=== PATIENT | male | born 1975 | race Caucasian/White ===

== ENCOUNTER 2022-01-17 07:36 | Day surgery (SDC) | payer BC, SELFPAY ==
--- NOTE | 2022-01-17 | COLBX_PTH ---
PATIENT: MYNOR SHELL Jr. LOC: EN U#:[id number] AGE/SX: 46/M ROOM: RE01/17/[address]: Dr. Irasema Martínez MD : 1975 BED: DIS: 01/17/2022 SPEC #: [id number] RECD: 01/17/22 11:28 STATUS: JAVIER REKika #: [id number] DEUCE: 01/17/22 00:[address]: Irasema Martínez DEPT: SURGICAL PATHOLOGY RECD BY: Patrick Poep ENTERED: 01/17/22 11:28 SP TYPE: COLON BX OT DR: Dr. Loki Reid MD Tissues: A - Sigmoid colon biopsy B - Rectum, NOS Procedures: Surgery Specimen Level IV HEADER OPERATION: Colonoscopy ? open access (MAC) PRE-OP DIAGNOSIS: Screening TISSUE SUBMITTED: A ? Sigmoid colon polyp, B ? Rectal polyp MICROSCOPIC DIAGNOSIS A. Sigmoid colon polyp, biopsy: Tubular adenoma. Fragments of hyperplastic polyp. B. Rectal polyp, biopsy: Consistent with inflammatory polyp. ELEAZAR:catracho 01/18/2022 MICROSCOPIC DESCRIPTION Slides are reviewed. GROSS DESCRIPTION A - Received in fixative is one container labeled with the patient's name and designated sigmoid colon polyp. The specimen consists of multiple irregular fragments of light allen soft tissue that in aggregate measure 0.6 x 0.3 x 0.1 cm. The specimen is totally submitted in one cassette. B - Received in fixative is one container labeled with the patient's name and designated rectal polyp. The specimen consists of two irregular fragments of light allen soft tissue that in aggregate measure 0.6 x 0.3 x 0.1 cm. The specimen is totally submitted in one cassette. / ELEAZAR:catracho 01/17/2022 TC:1 [facility]: [id number] x2
--- NOTE | 2022-01-17 08:05 | HP.PCM_ITS ---
HPI - General HPI Narrative MYNOR SHELL, is a 46 M who presents for screening colonoscopy. Patient never had a previous colonoscopy. Patient denies any family history of colon cancer. Patient denies any current abdominal pain/nausea/vomiting/reflux. Patient's bowel moods daily denies any blood. PFSH Medical History Non-smoker Home Medications NK 12/23/21 [History Last Taken Unknown] Allergy/AdvReac Type Severity Reaction Status Date / Time No Known Allergies Allergy Unverified 01/14/22 11:18 Family History Father Prostate CA Hypertension Surgical History (Updated 01/14/22 @ 11:22 by Soo Agarwal) History of root canal procedure Hx of hand surgery Social History household members: spouse and children number of children: 3 current occupational status: employed current occupation: [employer] pets and animals: Yes Smoking Status: Never smoker substance use type: does not use seatbelt use: always do you feel safe at home: Yes Past Medical/Surgical History Planned Operation Planned Operative Procedure/s: CSCOPE OA Previous Hospitalizations/Surgeries HX Hospitalizations: No Any Problems With Anesthesia: No You/Your Family Experience Fever (Hyperthermia) With Anes: No Cholinesterase deficiency: No Cardiovascular Hx Hypertension: No Respiratory Hx Sleep Apnea: No Hx Respiratory Tract Infection/Cold (presently): No Do You Snore Loudly (louder than talking or can be heard): No Do You Often Feel Tired/ Fatigued/ Sleepy Dring Daytime?: No Has Anyone Observed You Stop Breathing During Sleep?: No Result (for STOP score): Negative Smoking Status: Never smoker Neurological Does patient have nerve stimulator: No Reproduction : No Allergies No Known Allergies Allergy (Unverified 01/14/22 11:18) Discharge Is Pt Admitted From a [facility], or a [facility]: No After D/C, Where Do you Plan to Go: Return Home Physical Exam Const alert, oriented x3 and no apparent distress HEENT normocephalic and head/scalp atraumatic Resp normal respiratory effort Cardio regular rate GI soft to palpation and non-tender; Negative for non-distended Palpation: Negative for guarding Extremity no clubbing, cyanosis or edema Neuro CN's II-XII intact bilaterally Psych mental status grossly normal Assessment & Plan Assessment/Plan (1) Encounter for screening for malignant neoplasm of colon: Procedure Criteria Type of Procedure Procedure Type: Elective Elective Risks - COVID COVID Risk Discussion: The surgeon/proceduralist and patient have discussed in detail the risk of exposure to and/or potential harm posed by the COVID-19 virus with having a surgery/procedure at this time versus the risk of delaying the surgery/procedure. It is not possible to know either the risk of delaying the surgery or procedure or chance of getting an infection with perfect accuracy, but a joint decision was made between the patient and the surgeon/proceduralist to proceed at this time with the scheduled surgery/procedure as indicated on the consent form. Surgery Risks - Colonoscopy Risks Include but are not Limited To: Risks include but are not limited to: Bleeding, perforation requiring further surgery, inability to complete colonoscopy requiring barium enema.
[2022-01-17 08:16] VITALS: BP 152/94; PULSE 68; RESP 16; TEMP 37; O2SAT 100; BMI 36.7
[2022-01-17] MEDS: Lactated Ringers 1,000 ML 15 ML IV (08:23)
[2022-01-17 09:31] VITALS: BP 116/68; BP 152/94; PULSE 62; RESP 16; TEMP 36.3; O2SAT 97
--- NOTE | 2022-01-17 09:33 | OP.COLON_ITS ---
Patient Name: Herman Ruiz Procedure Date: 01/17/2022 9:01 AM Date of : 1975 Age: 46 Procedure: Colonoscopy Indications: Screening for colorectal malignant neoplasm Providers: Irasema Martínez MD Referring MD: Irasema Martínez MD Medicines: Monitored Anesthesia Care Patient Profile: This is a 46 year old male. Last Colonoscopy: none. The patient's first colonoscopy is today. Complications: No immediate complications. Procedure: Pre-Anesthesia Assessment: - Prior to the procedure, a History and Physical was performed, and patient medications and allergies were reviewed. The patient's tolerance of previous anesthesia was also reviewed. The risks and benefits of the procedure and the sedation options and risks were discussed with the patient. All questions were answered, and informed consent was obtained. Prior Anticoagulants: The patient has taken no previous anticoagulant or antiplatelet agents. ASA Grade Assessment: Per anesthesia. After reviewing the risks and benefits, the patient was deemed in satisfactory condition to undergo the procedure. After I obtained informed consent, the scope was passed under direct vision. Throughout the procedure, the patient's blood pressure, pulse, and oxygen saturations were monitored continuously. The Colonoscope was introduced through the anus and advanced to the cecum, identified by the appendiceal orifice, ileocecal valve and palpation. The colonoscopy was performed without difficulty. The patient tolerated the procedure well. The quality of the bowel preparation was good. Scope In: 9:09:56 AM Scope Withdrawal Time 0 hours 13 minutes 39 seconds Scope Out: 9:27:57 AM Total Procedure Duration Time 0 hours 18 minutes 1 second Findings: The perianal and digital rectal examinations were normal. Three semi-pedunculated polyps were found in the rectum and sigmoid colon. The polyps were less than 5 mm in size. These polyps were removed with a cold biopsy forceps. Resection and retrieval were complete. The exam was otherwise without abnormality on direct and retroflexion views. Impression: - Three less than 5 mm polyps in the rectum and in the sigmoid colon, removed with a cold biopsy forceps. Resected and retrieved. - The examination was otherwise normal on direct and retroflexion views. Recommendation: - Discharge patient to home. - Resume previous diet. - Continue present medications. - Await pathology results. - Repeat colonoscopy in 5 years for surveillance based on pathology results. Procedure Code(s): --- Professional --- 86314, PT, Colonoscopy, flexible; with biopsy, single or multiple Diagnosis Code(s): --- Professional --- Z12.11, Encounter for screening for malignant neoplasm of colon K62.1, Rectal polyp D12.5, Benign neoplasm of sigmoid colon CPT copyright 2017 [employer]. All rights reserved. The codes documented in this report are preliminary and upon berry planter review may be revised to meet current compliance requirements. MD Irasema Swift MD 01/17/2022 9:33:04 AM This report has been signed electronically. Number of Addenda: 0 Note Initiated On: 01/17/2022 9:01 AM
--- NOTE | 2022-01-17 09:34 | OP.CCLET_ITS ---
01/17/2022 Everett Reid [address] [place] [address] Re : Colonoscopy procedure for Herman Ruiz Dear Dr. Reid This procedure was performed on Monday, January 17, 2022. My impressions and recommendations are as follows: Impressions : - Three less than 5 mm polyps in the rectum and in the sigmoid colon, removed with a cold biopsy forceps. Resected and retrieved. - The examination was otherwise normal on direct and retroflexion views. Recommendations : - Discharge patient to home. - Resume previous diet. - Continue present medications. - Await pathology results. - Repeat colonoscopy in 5 years for surveillance based on pathology results. My findings are described in the full procedure note, which is enclosed. If I can be of further assistance, please feel free to contact me at Doctor phone number(s): , Work: . Sincerely, MD Irasema Swift MD 01/17/2022 9:33:04 AM This report has been signed electronically.
[2022-01-17 09:35] VITALS: BP 124/73; BP 152/94; PULSE 62; RESP 16; O2SAT 99
[2022-01-17 09:40] VITALS: BP 126/87; BP 152/94; PULSE 61; RESP 16; O2SAT 99
[2022-01-17 09:45] VITALS: BP 126/83; BP 152/94; PULSE 55; RESP 16; TEMP 36.3; O2SAT 100
[2022-01-17 10:00] VITALS: BP 152/94
== END 2022-01-17 10:05 | disposition home or self-care (01) ==
LOC: EN 07:39 → AC 07:41
PROVIDERS: PCP Family Medicine; Referring Provider Surgery; Visit Provider Surgery
PROC: 0DJD8ZZ Inspection of Lower Intestinal Tract, Via Natural or Artificial Opening Endoscopic (ICD-10-PCS; CPT 45378; principal; 2022-01-17 08:55)
DX: Z12.11 Encounter for screening for malignant neoplasm of colon (principal); K62.1 Rectal polyp; D12.5 Benign neoplasm of sigmoid colon
CPT/HCPCS: 45380; 88305; J7120; J2405

== ENCOUNTER → 2025-02-13 | Outpatient (CLI) | payer OTHER, SELFPAY ==
--- NOTE | 2025-02-13 13:58 | STRESSREP_ITS ---
Stress Test Report Date: 02/13/2025 Procedure: Exercise tolerance test Indications: Chest pain Consent: Per the patient Procedure: The patient exercised on a Raul protocol for 9 minutes and 30 seconds achieving a peak heart rate of 146 bpm (85% predicted maximal heart rate) with a peak blood pressure 184/82 mmHg and a peak MET capacity of approximately 11.7 MET's. The baseline ECG demonstrated sinus rhythm with inferior T wave inversion suggestive of ischemia. The peak exercise ECG showed no diagnostic ischemic changes, specificity reduced secondary to baseline abnormalities. There were no cardiac dysrhythmias pretest, during exercise, or recovery. The functional capacity was considered excellent. The patient complained of chest discomfort along with jaw pain starting during the third stage of the Raul protocol. This was resolved 4 minutes into recovery The examination was discontinued secondary to target heart rate being achieved and chest discomfort. Impression: 1. Technically adequate (percent predicted maximal heart rate greater than 85%) exercise tolerance test 2. Peak exercise ECG with no diagnostic ischemic changes. Patient with chest and jaw pain with exercise, resolving into recovery. Positive exercise stress for angina. 3. There were no cardiac dysrhythmias during exercise or recovery This note was generated with [employer] software. It may contain incorrect words, spelling, and punctuation that were not noted in checking the note before signing.
== END | disposition home or self-care (01) ==
LOC: CVS 11:59
PROVIDERS: PCP Family Medicine; Referring Provider Family Medicine; Visit Provider Family Medicine
DX: R07.9 Chest pain, unspecified (principal)
CPT/HCPCS: 93017

== ENCOUNTER → 2025-03-19 | Outpatient (CLI) | payer OTHER, SELFPAY ==
--- NOTE | 2025-03-19 14:25 | RAD_ITS ---
PROCEDURE: CHEST PA AND LATERAL 03/19/2025 REASON FOR EXAM: CAD TECHNIQUE: CHEST PA AND LATERAL COMPARISON: None FINDINGS: No focal consolidation. No pleural effusion or pneumothorax. Cardiac silhouette is within normal limits. No acute fractures. RAD/Chest PA and Lateral IMPRESSION: No focal consolidation. Reading Location: [id number]
--- NOTE | 2025-03-19 14:25 | RAD_ITS ---
PROCEDURE: CHEST PA AND LATERAL 03/19/2025 REASON FOR EXAM: CAD TECHNIQUE: CHEST PA AND LATERAL COMPARISON: None FINDINGS: No focal consolidation. No pleural effusion or pneumothorax. Cardiac silhouette is within normal limits. No acute fractures. RAD/Chest PA and Lateral IMPRESSION: No focal consolidation. Reading Location: [id number]
[2025-03-19 15:55] LABS: Hematocrit 45.5 % (40-54); Hemoglobin 15.1 g/dL (13.0-16.5); Immature Granulocytes Count 0.020 X10^3/uL (0.0-0.0); Mean Corp Hgb Conc 33.2 g/dL (32-36); Mean Corpuscular Volume 88.0 fL (80-94); Mean Platelet Vol. 9.7 fl (6.2-12.0); NRBC Flagged by Analyzer 0 % (0-5); Platelet Count 467 K/mm3 (150-450); RBC Distribution Width CV 13.9 % (11.6-14.6); RBC Distribution Width SD 44.6 fl (35.1-43.9); Red Blood Count 5.17 M/mm3 (4.6-6.2); White Blood Count 8.0 K/mm3 (4.4-11.0)
[2025-03-19 16:46] LABS: Anion Gap 13 (5-15); BUN 17 mg/dL (4-19); BUN/Creat Ratio 16.1 RATIO (10-20); Calcium,Total 9.1 mg/dL (7.6-11.0); Carbon Dioxide 21.6 mmol/L (21.0-32.0); Chloride 102 mmol/L (98-108); Glucose 94 mg/dL (70-99); Potassium 3.6 mmol/L (3.3-5.1)
== END | disposition home or self-care (01) ==
LOC: LAB 14:09
PROVIDERS: PCP Family Medicine; Referring Provider Internal Medicine Cardiovascular Disease; Visit Provider Internal Medicine Cardiovascular Disease
DX: R94.39 Abnormal result of other cardiovascular function study (principal)
CPT/HCPCS: 36415; 71046; 80048; 85025

== ENCOUNTER 2025-03-21 12:56 | Observation (INO) | payer OTHER, SELFPAY ==
[2025-03-20 07:38] VITALS: BMI 35.9
[2025-03-21] VITALS (16 sets, daily range): BP systolic 114–138; BP diastolic 59–79; PULSE 53–70; RESP 16–18; TEMP 36.6; O2SAT 95–99; BMI 35.9
--- OUTSIDE RECORDS SUMMARY | 2025-03-21 06:30 | XMS RPT_ITS | CCD ---
Author Organization [facility] Care Team Providers Care Smudger Name Role Phone Dr. Everett Reid Primary Care Provider Radha Cruz Attending Provider Unavailable Dr. Irasema Martínez Attending Provider Dr. Irasema Martínez Referring Provider Dr. Irasema Martínez Other Provider Jeanette SALDIVAR, Dr. Manjarrez Primary Care Provider Jeanette SALDIVAR, Dr. Manjarrez Attending Provider Jeanette SALDIVAR, Dr. Manjarrez Referring Provider [phone] Jeanette SALDIVAR, Dr. Manjarrez Other Provider Berhane SALDIVAR, Dr. Alberto Attending Provider Loki Reid Primary Care Unavailable Aminta Mariee Attending Unavailable Loki Reid Primary Care Unavailable Loki Reid Consulting Unavailable Loki Reid Referring Unavailable Remy Last Attending Unavailable Loki Reid Primary Care Unavailable Loki Reid Attending Unavailable Loki Reid Referring Unavailable Aminta Mariee Attending Provider Unavailable Gabe SALDIVAR, Dr. Whitley Attending Provider Medications Current Medications Medication Drug Class(es) Dates Sig (Normalized) Sig (Original) aspirin 81 mg delayed release oral tablet (2 sources) Platelet Aggregation Inhibitor, Nonsteroidal Anti-inflammatory Drug Start: 02-20-2025 End: 03-19-2025 Aspirin (Adult Low Dose Aspirin) 81 mg tablet,delayed release (DR/EC) Active 81 mg PO daily 90 3 March 19, 2025 12:00am atorvastatin 40 mg oral tablet (1 source) HMG-CoA Reductase Inhibitor Start: 03-19-2025 take 1 tablet by mouth once daily Atorvastatin (Lipitor) 40 mg tablet Active 40 mg PO daily 90 3 March 19, 2025 12:00am 24 hr metoprolol succinate 25 mg extended release oral tablet (1 source) beta-Adrenergic Haylee Start: 03-19-2025 take 1 tablet by mouth once daily Metoprolol Succinate (Toprol Xl) 25 mg tablet extended release 24 hr Active 25 mg PO daily 90 2 March 19, 2025 12:00am Problems Problem Classification Problem Date Documented Date Episodic/Chronic Esophageal disorders (1 source) Gastroesophageal reflux disease; Translations: [Gastro-esophageal reflux disease without esophagitis] 02-20-2025 Chronic Nonspecific chest pain (3 sources) Chest pain, unspecified; Translations: [Chest pain] Onset: 02-24-2025 02-20-2025 Episodic Other screening for suspected conditions (not mental disorders or infectious disease) (6 sources) Patient encounter status; Translations: [Encounter for screening for malignant neoplasm of colon] Episodic Results Test Name Value Interpretation Reference Range Facil ity Cardiovascular stress test r eportOrdered By: Remy Last on 02-13-2025 Study report [facility] [address] [place] [address] MR#: [id number] Acct: [id number] Name: MYNOR SHELL Rep #: [id number] : 1975 50 From: Remy Last MD Primary Care: Dr. Loki Reid MD Status: REG I Referring Dr: Loki Reid MD Sex: M C Stress Test Report Date: 02/13/2025 Procedure: Exercise tolerance test Indications: Chest pain Consent: Per the patient Procedure: The patient exercised on a Raul protocol for 9 minutes and 30 seconds achievinga peak heart rate of 146 bpm (85% predicted maximal heart rate) with a peak blood pressure 184/82 mmHg and a peak MET capacity of approximately 11.7 MET's. The baseline ECG demonstrated sinus rhythm with inferior T wave inversion suggestive of ischemia. The peak exercise ECG showed no diagnostic ischemic changes, specificity reduced secondary to baseline abnormalities. There were no cardiac dysrhythmias pretest, during exercise, or recovery. The functional capacity was considered excellent. The patient complained of chest discomfort along with jaw pain starting during the third stage of the Raul protocol. This was resolved 4 minutes into recovery The examination was discontinued secondary to target heart rate being achieved and chest discomfort. Impression: 1. Technically adequate (percent predicted maximal heart rate greater than 85%)exercise tolerance test 2. Peak exercise ECG with no diagnostic ischemic changes. Patient with chest and jaw pain with exercise, resolving into recovery. Positive exercise stress for angina. 3. There were no cardiac dysrhythmias during exercise or recovery This note was generated with [employer] software. It may contain incorrectwords, spelling, and punctuation that were not noted in checking the note beforesigning. 02/13/25 1406 Date _ Remy Last MD CC: Dr. Loki Reid MD ~ Date Dictated: 02/13/25 1358 Date Transcribed: 02/13/251357 Drop Man: PRIYANKA Malhotra [facility] Work Phone: Stress Reporton 02-13-2025 Stress Report [facility] [address] [place] [address] MR#: [id number] Acct: [id number] Name: SUMAYAMYNOR Jr. Rep #: [id number] : 1975 50 From: Remy Last MD Primary Care: Dr. Loki Reid MD Status: REG CLI Referring Dr: Loki Reid MD Sex: M C Stress Test Report Date: 02/13/2025 Procedure: Exercise tolerance test Indications: Chest pain Consent: Per the patient Procedure: The patient exercised on a Raul protocol for 9 minutes and 30 seconds achieving a peak heart rate of 146 bpm (85% predicted maximal heart rate) with a peak blood pressure 184/82 mmHg and a peak MET capacity of approximately 11.7 MET's. The baseline ECG demonstrated sinus rhythm with inferior T wave inversion suggestive of ischemia. The peak exercise ECG showed no diagnostic ischemic changes, specificity reduced secondary to baseline abnormalities. There were no cardiac dysrhythmias pretest, during exercise, or recovery. The functional capacity was considered excellent. The patient complained of chest discomfort along with jaw pain starting during the third stage of the Raul protocol. This was resolved 4 minutes into recovery The examination was discontinued secondary to target heart rate being achieved and chest discomfort. Impression: 1. Technically adequate (percent predicted maximal heart rate greater than 85%) exercise tolerance test 2. Peak exercise ECG with no diagnostic ischemic changes. Patient with chest and jaw pain with exercise, resolving into recovery. Positive exercise stress for angina. 3. There were no cardiac dysrhythmias during exercise or recovery This note was generated with [employer] software. It may contain incorrect words, spelling, and punctuation that were not noted in checking the note before signing. 02/13/25 1406 Date Remy Last MD CC: Dr. Loki Reid MD Date Dictated: 02/13/25 1358 Date Transcribed: 02/13/251357 Drop Man: PRIYANKA Signed Normal [facility] Vital Signs Date Time Vital Sign Value Performing Clinician Faci lity 03-19-2025 12:55-0400 Body height 172.[address] Loki Reid MD Work Phone: [facility] 03-19-2025 12:55-0400 Body mass index (BMI) [Ratio] 35.9 kg/m2 Dr. Loki Reid MD Work Phone: [facility] 03-19-2025 12:55-0400 Body weight 107.[address] Loki Reid MD Work Phone: [facility] 03-19-2025 12:55-0400 Diastolic blood pressure 86 mm[Hg] Dr. Loki Reid MD Work Phone: [facility] 03-19-2025 12:55-0400 Heart rate 70 /min Dr. Loki Reid MD Work Phone: [facility] 03-19-2025 12:55-0400 Respiratory rate 16 /min Dr. Loki Reid MD Work Phone: [facility] 03-19-2025 12:55-0400 Systolic blood pressure 142 mm[Hg] Dr. Loki Reid MD Work Phone: [facility] 01-17-2022 09:45-0400 Body temperature 97.3 [degF] Dr. Everett Reid Work Phone: [facility] Work Phone: 01-17-2022 09:45-0400 Diastolic blood pressure 83 mm[Hg] Dr. Everett Reid Work Phone: [facility] Work Phone: 01-17-2022 09:45-0400 Heart rate 55 /min Dr. Everett Reid Work Phone: [facility] Work Phone: 01-17-2022 09:45-0400 Respiratory rate 16 /min Dr. Everett Reid Work Phone: [facility] Work Phone: 01-17-2022 09:45-0400 SaO2% (BldA) [Mass fraction] 100 % Dr. Everett Reid Work Phone: [facility] Work Phone: 01-17-2022 09:45-0400 Systolic blood pressure 126 mm[Hg] Dr. Everett Reid Work Phone: [facility] Work Phone: 01-17-2022 08:16-0400 Body height 172.[address] Everett Reid Work Phone: [facility] Work Phone: 01-17-2022 08:16-0400 Body mass index (BMI) [Ratio] 36.7 kg/m2 Dr. Everett Reid Work Phone: [facility] Work Phone: 01-17-2022 08:16-0400 Body weight 109.[address] Everett Reid Work Phone: [facility] Work Phone: 12-23-2021 09:14-0400 Body mass index (BMI) [Ratio] 35.7 kg/m2 Dr. Everett Reid Work Phone: [facility] Work Phone: 12-23-2021 09:14-0400 Body weight 106.[address] Everett Reid Work Phone: [facility] Work Phone: Encounters Encounter Date Encounter Type Care Provider Facility Start: 03-19-2025 End: 03-19-[address] Loki Reid MD Work Phone: -[facility] Start: 03-19-2025 End: 03-19-[address] Gutierrez Bernal MD -[facility] Work Phone: Start: 02-20-2025 Non-patient / Non-visit Aminta Mariee -[facility] Work Phone: Start: 02-20-2025 ambulatory Loki Reid Faci lity:[facility] Start: 02-13-2025 ambulatory Loki Reid Facpetra lity:[facility] Start: 02-13-2025 Non-patient / Non-visit Dr. Remy Last MD -[facility] Start: 02-13-2025 End: 02-13-[address] Loki Reid MD Work Phone: [facility] Work Phone: Start: 02-13-2025 End: 02-13-[address] Loki Reid MD -Cardiovascular Services Work Phone: Start: 02-13-2025 End: 02-13-2025 ambulatory Loki Reid Facility:[facility] Start: 01-17-2022 Non-patient / Non-visit Dr. Everett Reid Work Phone: [facility] Start: 01-17-2022 End: 01-17-2022 Admission to same day surgery center Dr. Everett Reid Work Phone: [facility]-Endoscopy Start: 12-23-2021 Non-patient / Non-visit Dr. Everett Reid Work Phone: [facility] Procedures Date Procedure Procedure Detail Performing Clinician Start: 01-17-[address] Fadi Reid Work Phone: Plan of Treatment Date Care Activity Detail Author Start: 03-19-2025 Evaluation of diagno stic study results [facility] Basic metabolic 2008 panel with ionized calcium - Serum or Plasma [facility] spital Catheterization of left heart [facility] CBC W Auto Different ial panel - Blood [facility] Patient referral [facility] Work Phone: XR Chest PA and Lateral [facility] Payers Date Payer Category Payer Private Health Insurance [id number] 2025 Self-pay [id number] Unknown [id number] Unknown [id number] Unknown [id number] Unknown [id number] Social History Date Type Detail Facility Start: 01-17-2022 Tobacco smoking stat us NHIS Unknown if ever smoked [facility] Work Phone: Start: 1975 Sex Assigned At Male [facility] Start: 01-17-2022 End: 02-20-2025 Tobacco smoking status NHIS Never smoked tobacco (finding) [facility] Mental Status Date Assessment Result Facility 01-17-2022 Cognitive function Voice/Name [facility] Work Phone: Evaluation note Note Date & Type Note Facility Evaluation note Diagnosis Onset Date Encounter for screening for malignant neoplasm of colon acute [facility] Work Phone: Evaluation note Note Date & Type Note Facility Evaluation note No assessment information availa ble [facility] Work Phone: Evaluation note Note Date & Type Note Facility Evaluation note Diagnosis Onset Date Resolution Abnormal stress test acute March 19, 2025 12:53pm [facility] Work Phone: Reason for referral (narrative) Note Date & Type Note Facility Reason for referral (narrative) No reason for referral information available [facility] Work Phone: Chief Complaint and Reason for Visit Chief Complaint Amb Documentation Reason for Visit Encounter for screen ing for malignant neoplasm of colon Chief Complaint Admit Date CHEST PAIN February 13, 2025 11:5 7am CHEST PAIN February 13, 2025 1:58 pm Chief Complaint Admit Date CHEST PAIN February 13, 2025 11:5 7am CHEST PAIN February 13, 2025 1:58 pm Amb Documentation February 20, 2025 1:09 pm CP/ABN STRESS (Jeanette) March 19, 2025 1 2:53pm Reason for Visit Admit Date Abnormal stress test March 19, 2025 12: 53pm Family History Relationship Condition Age at Onset Recorded Date/T paulina father Malignant neoplasm of prostate Unknown Hypertension Unknown Advance Directives Advance Directive Response Recorded Date/ Time Living Will No January 14, 2022 1 1:18am Power of Conditioning Room Worker No January 14, 2022 11:18am Summary Purpose Additional Source Comments Goals (unrecognized section and content) Goals may be documented in a n alternate sectionGoals may be documented in an alternate sectionGoals may be documented in an alternate section Care Teams (unrecognized sec tion and content) Team Status: Active Member Role Status Dates Dr. Loki Reid MD Primary Care Provider Acti ve Team Status: Inactive Member Role Status Dates Dr. Loki Reid MD Primary Care Provider Acti ve Start: February 13, 2025 End: February 13, 2025 Dr. Loki Reid MD Attending Provider Active Start: February 13, 2025 End: February 13, 2025 Dr. Loki Reid MD Referring Provider Active Start: February 13, 2025 End: February 13, 2025 Team Status: Active Member Role Status Dates Dr. oLki Reid MD Primary Care Provider Acti ve Start: February 13, 2025 Dr. Loki Reid MD Referring Provider Active Start: February 13, 2025 Dr. Loki Reid MD Other Provider Active Start: February 13, 2025 Dr. Remy Last MD Attending Provider Active Start: February 13, 2025 Team Status: Active Member Role/Relationship Status Dates Dr. Loki Reid MD Primary Care Provider Acti ve Team Status: Inactive Member Role/Relationship Status Dates Dr. Loki Reid MD Primary Care Provider Acti ve Start: February 13, 2025 End: February 13, 2025 Dr. Loki Reid MD Attending Provider Active Start: February 13, 2025 End: February 13, 2025 Dr. Loki Reid MD Referring Provider Active Start: February 13, 2025 End: February 13, 2025 Team Status: Active Member Role/Relationship Status Dates Dr. Loki Reid MD Primary Care Provider Acti ve Start: February 13, 2025 Dr. Loki Reid MD Referring Provider Active Start: February 13, 2025 Dr. Loki Reid MD Other Provider Active Start: February 13, 2025 Dr. Remy Last MD Attending Provider Active Start: February 13, 2025 Team Status: Active Member Role/Relationship Status Dates Dr. Loki Reid MD Primary Care Provider Acti ve Start: February 20, 2025 Aminta Mariee Attending Provider Active Start: 2024 Team Status: Inactive Member Role/Relationship Status Dates Dr. Loki Reid MD Primary Care Provider Acti ve Start: March 19, 2025 End: March 19, 2025 Dr. Loki Reid MD Referring Provider Active Start: March 19, 2025 End: March 19, 2025 Dr. Gutierrez Bernal MD Attending Provider Active S tart: March 19, 2025 End: March 19, 2025 (unrecognized sect ion and content) No Status Records Found INFORMATION SOURCE (unrecogn ized section and content) DATE CREATED AUTHOR 02/25/2025 [facility] FOR RECORDS PERTAINING TO PATIENTS WHO ARE OR HAVE BEEN ENROLLED IN A CHEMICAL DEPENDENCY/SUBSTANCEABUSE PROGRAM, SOME INFORMATION MAY BE OMITTED. This clinical summary was aggregated from multiple sources. Caution should be exercised in using it in the provision of clinical care. This summary normalizes information from multiple sources, and as a consequence, information in this document may materially change the coding, format and clinical context of patient data. In addition, data may be omitted in some cases. CLINICAL DECISIONS SHOULD BE BASED ON THE PRIMARY CLINICAL RECORDS. [facility]. provides no warranty or guarantee of the accuracy or completeness of information in this document.
--- NOTE | 2025-03-21 13:00 | EKG12_ITS ---
Test Reason : POSTPCI Blood Pressure : */* mmHG Vent. Rate : 55 BPM Atrial Rate : 55 BPM P-R Int : 168 ms QRS Dur : 92 ms QT Int : 446 ms P-R-T Axes : 26 46 -42 degrees QTcB Int : 426 ms Sinus bradycardia Inferior infarct (cited on or before 19-Mar-2025) Abnormal ECG When compared with ECG of 19-Mar-2025 13:06, No significant change was found Confirmed by Osmani Ortega ([id number]), editor greeting card KERI CHEN ([id number]) on 03/25/2025 5:43:26 AM Referred By: Gutierrez Bernal Confirmed By: Osmani Ortega
--- NOTE | 2025-03-21 13:00 | DCINST_ITS ---
Discharge Instructions DC O2, CPAP, BIPAP needs Home O2 Discharge instructions: No Dressing / Incision Discharge Activity: Return to Normal Activity Dressing / Incision Call your doctor if your incision/area has: Continuous Slow Oozing, Sudden Increased Bleeding, Increased Pain/ Swelling, Increased Redness and Foul Smelling Discharge Call your doctor if you observe: Fever of 101 or Higher, Coldness, Increased Pain, Numbness or Tingling and Change in Color Follow Up Care Please Follow Up With: Gutierrez Bernal MD When: 1-2 weeks Test Results: Test results from this visit will be discussed in further detail at your follow- up appointment, if applicable. Discharge Plan Admission Attending Provider: Gutierrez Bernal Primary Care Provider: Loki Reid Instructions Print Language: Upper Sorbian Discharge Orders/Prescriptions Prescriptions: New amlodipine 2.5 mg Tablet 2.5 mg PO DAILY Qty: 30 6RF clopidogrel 75 mg Tablet 75 mg PO DAILY Qty: 30 11RF nitroglycerin [Nitrostat] 0.4 mg tablet, sublingual 0.4 mg sublingual Q5M PRN (Reason: chest pain) Qty: 14 3RF Rx Instructions: do not exceed 3 doses per episode Continued metoprolol succinate [Toprol XL] 25 mg tablet extended release 24 hr 25 mg PO QDAY Qty: 90 2RF atorvastatin [Lipitor] 40 mg tablet 40 mg PO QDAY Qty: 90 3RF aspirin [Adult Low Dose Aspirin] 81 mg tablet,delayed release (DR/EC) 81 mg PO QDAY Qty: 90 3RF Referrals / Follow Up: Loki Reid MD [Primary Care Provider] - Disposition Disposition (needs filled in before D/C Order can be placed): Home, Self Care
--- NOTE | 2025-03-21 13:15 | CRPH1.INST_ITS ---
General Education Discussed with Patient CAD and cardiac anatomy and function:: Patient communicates acknowledgment Explanation of diagnoses and procedures:: Patient communicates acknowledgment Sign/Symptoms of NE:: Patient communicates acknowledgment Antiplatelet therapy: Patient communicates acknowledgment Proper use of NTG-SL: Patient communicates acknowledgment Emergency procedures and activation of EMS: Patient communicates acknowledgment Compliance of all prescribed medications: Patient communicates acknowledgment Smoking Risk Factors Patient Nicotine/Smoking Risk Factors Are:: Cigarettes, Pipes and Smokeless tobacco Recommendations Recommendations Include:: Previous smoker; encourage continued cessation Response Code Nicotine/Smoking Response Code:: Patient communicates acknowledgment Dyslipidemia Risk Factors Patient Dyslipidemia Risk Factors Are:: Total Cholesterol, Triglycerides, HDL and LDL Recommendations Recommendations Include:: Lipid profile not available, Reviewed NCEP/ATP guidelines and Therapeutic Lifestyle Change dietary guidelines Response Code Dyslipidemia Response Code:: Patient communicates acknowledgment Overweight/Obesity Risk Factors Patient Overweight/Obesity Risk Factors Are:: Obesity - > or = 30 Recommendations Recommendations Include:: Weight loss of 5-10%, Reduced calorie diet and Exercise 5-7 times/week Response Code Overweight/Obesity:: Patient communicates acknowledgment Hypertension Recommendations Recommendations Include:: Moderation of ETOH Response Code Hypertension:: Patient communicates acknowledgment, Family communicates acknowledgment and Patient returns demonstration Heart Disease Risk Factors Patient Heart Disease Risk Factors Are:: Family history of heart disease < 65 years old Recommendations Recommendations Include:: Educated family members of their risk and Educated family members of importance of prevention of heart disease Response Code Heart Disease Response Code:: Patient communicates acknowledgment Diabetes Risk Factors Patient Diabetes Risk Factors Are:: No documented hx of diabetes Recommendations Recommendations Include:: Maintain fasting blood sugars 70-110 md/dL, Maintain HgbA1c of 6% or less, Monitor blood sugar as prescribed, Diabetic dietary g uidelines and Decrease/maintain body weight Response Code Diabetes:: Patient communicates acknowledgment Metabolic Syndrome Risk Factors Patient Metabolic Syndrome Risk Factors Are [3 of 5]:: Waist circumference > 35 [female] or 40 [male] and High triglyceride >150 Recommendations Recommendations Include:: Reinforce compliance to risk factor modifications Response Code Metabolic Syndrome Response Code:: Patient communicates acknowledgment Sedentary Recommendations Recommendations Include:: Aerobic exercise 5-7 times/week for 20-30 minutes continuously, Benefits of regular exercise and Monitored Outpatient Cardiac Rehab Response Code Sedentary Response Code:: Patient communicates acknowledgment Stress Risk Factors Patient Stress Risk Factors Are:: Patient denies stress as a risk factor Recommendations Recommendations Include:: Identification of stressors, and assessment of coping skills and Stress management techniques Response Code Stress Response Code:: Patient communicates acknowledgment
--- NOTE | 2025-03-21 13:15 | CRPHASE1_ITS ---
Patient Communication Patient Information Former Patient:: Phase I PHII Cardiac Rehab Discussed with Patient:: Yes Guide to Cardiac Rehab Given to Patient:: Yes Cardiac Rehab Facility Choice List Given to Patient:: Yes Communication to Cardiac Rehab Sessions:: 36 sessions - 3 days/wk, 12 weeks Cardiac Rehabilitation Info Program Information Cardiac Rehabilitation Program Information: Cardiac Rehab The cardiac rehab team at [facility] consists of highly skilled exercise physiologists, nurses, respiratory therapists and physicians working together with you. Our purpose is to help you have a full recovery and achieve the goals you set for yourself. Over the years many of our patients have returned to activities they assumed they would never do again! We can help restore your confidence and motivation to make lifestyle changes that can have a significant impact on your health and quality of life! We can help answer questions and concerns you may have about exercise, lifestyle, medications, diet, stress and anxiety which are common following a hospitalization. WE monitor ECG and vital signs during exercise and discuss your progress with you and report to your physician(s). Cardiac Rehab is proven to help reduce readmissions, improve functional capacity and lower recurrence of problems with your heart. Our Cardiac Rehab program is Certified by the [place] [employer]-Vascular and Pulmonary [employer] (AACVPR) and Accredited by the [place] [employer] through our [facility]. You can contact us at . We invite you to call us with your questions or to get started in our program. If you have other questions or concerns be sure to ask your physician/provider during your follow-up visit. WE look forward to seeing you!
[2025-03-21] MEDS: 0.9% Normal Saline (1000mL) 1,000 ML 150 ML IV (13:42)
[2025-03-21 15:29] LABS: ACT Activated Clotting Time 193 sec (74-137)
[2025-03-22 03:37] VITALS: BP 121/74; PULSE 54; RESP 18; TEMP 36.4; O2SAT 96
[2025-03-22 05:36] LABS: Hematocrit 41.3 % (40-54); Hemoglobin 14.3 g/dL (13.0-16.5); Mean Corp Hgb Conc 34.6 g/dL (32-36); Mean Corpuscular Volume 86.0 fL (80-94); Mean Platelet Vol. 9.3 fl (6.2-12.0); Platelet Count 372 K/mm3 (150-450); RBC Distribution Width CV 14.0 % (11.6-14.6); RBC Distribution Width SD 44.1 fl (35.1-43.9); Red Blood Count 4.80 M/mm3 (4.6-6.2); White Blood Count 8.9 K/mm3 (4.4-11.0)
[2025-03-22 06:13] LABS: AST(SGOT) 20 U/L (<=37); Alanine Aminotransfer ALT/SGPT 18 U/L (<=46); Albumin, Serum 3.9 g/dL (3.5-5.0); Alkaline Phosphatase 92 U/L (40-129); Anion Gap 8 (5-15); BUN 13 mg/dL (4-19); BUN/Creat Ratio 12.1 RATIO (10-20); Calcium,Total 8.4 mg/dL (7.6-11.0); Carbon Dioxide 19.6 mmol/L (21.0-32.0); Chloride 107 mmol/L (98-108); Estimated Creatinine Clearance 97.97 ml/min (50-250); Globulin 2.5 g/dL (2.2-4.2); Glucose 102 mg/dL (70-99); Potassium 3.8 mmol/L (3.3-5.1)
[2025-03-22 09:41] VITALS: BP 135/72; PULSE 65; RESP 14; TEMP 36.5; O2SAT 96
[2025-03-22] MEDS: Aspirin E.C. 81 MG Tablet PO (09:42)
[2025-03-22 09:43] VITALS: BP 135/72; PULSE 65
[2025-03-22] MEDS: Metoprolol(XL)Succ 25 MG Tablet PO (09:43)
[2025-03-22 13:05] VITALS: BP 137/80; PULSE 67; RESP 14; TEMP 36.6; O2SAT 96
--- NOTE | 2025-04-14 09:46 | CL.I_ITS ---
Patient Name: MYNOR SHELL Study Date: 03/21/2025 Performing: Remy Last MD Ht: 68 inches 172.72 cm : 1975 Wt: 236.3 lbs 107.05 kg Age: 50 Gender: male BSA: 2.19 PROCEDURE(S) PERFORMED IC12-(86663/C9600)JOSE W/WO PTCA, SINGLE CORONARY ARTERY CLINICAL PROFILE AND CO-MORBIDITIES Indications: New Onset Angina <= 2 months Heart Failure: None Angina Classification Anginal Classification w/in 2 Weeks: CCS III CAD Presentations: Stable angina. Unstable angina. CONCLUSIONS Successful PTCA/JOSE Mid RCA uisng Freda [place] 3.0x38 mm, post-dilated using 3.5 mm balloon RECOMMENDATIONS ASA Indefinitley P2Y12 inhibitors for atleast 6 months Staged PCI to LAD DESCRIPTION OF PROCEDURE The patient arrived to the procedure lab. The risks and benefits of the procedure as well as a full description of our services here and current unavailability of surgical backup were fully explained to the patient and/or their significant other prior to the catheterization. The Timeout was completed, verifying the correct patient and procedure. The patient's procedural site was prepped and draped in the usual fashion. Local anesthetic was given subcutaneously to right radial region with Lidocaine 2%. Using a modified Seldinger technique, arterial access was obtained via the right radial artery, a 6Fr sheath was inserted.. AL0.75 Guide catheter was inserted and engaged into the RCA. Runthrough Guide wire was advanced to the RCA. SC Euphora 1.5x12 Balloon catheter was inserted. PTCA balloon inflated at 10 atms for 7 secs. PTCA balloon inflated at 10 atms for 7 secs. PTCA balloon inflated at 14 atms for 8 secs. Angiogram performed post balloon dilatation. SC Euphora 2.5x15 Balloon catheter was inserted. PTCA balloon inflated at 8 atms for 5 secs. PTCA balloon inflated at 10 atms for 6 secs. PTCA balloon inflated at 8 atms for 4 secs. PTCA balloon inflated at 8 atms for 11 secs. PTCA balloon inflated at 10 atms for 7 secs. Angiogram performed post balloon dilatation. [place] 3.0x38 Drug Eluting stent was inserted. Angiogram performed post stent deployment. NC Emerge 3.25x20 Balloon catheter was inserted. NC Emerge 3.50x12 Balloon catheter was inserted. Angiogram performed post balloon dilatation. The arterial sheath was pulled and a TR Band was applied for hemostasis w/ 9ml air INTERVENTION INFORMATION LESION SITE: RCA (Mid) Lesion Complexity: High/C, lesion length: 36 mm, culprit lesion: Yes, In-stent restenosis: No Pre Stenosis: 99 % Pre intervention LAILA flow: 2 PROCEDURE: Drug Eluting Stent with pre and post dilatation Post Stenosis: 0 % Post intervention LAILA flow: 3 Lesion Devices: Terumo .014 180cm Runthrough Extra Floppy straight Cordis 6 Fr AL.75 100cm Guide Catheter Medtronic SC EUPHORA RX 1.5x12 BALLOON Medtronic SC EUPHORA RX 2.5x15 BALLOON Medtronic 3.0 x 38 FREDA FRONTIER JOSE [employer] NC EMERGE MR 3.25x20 BALLOON [employer] NC EMERGE MR 3.50x12 BALLOON COMPLICATIONS No Complications PROCEDURE MEDICATIONS Versed 1 mg IV Fentanyl 50 mcg IV Oxygen: 2 L/min via nasal cannula Heparin given IA 03/21/2025 11:58:21 Heparin 6000 unit(s) IV 03/21/2025 11:59:59 Heparin 4000 unit(s) IV 03/21/2025 12:47:03 Nitro 200 mcg IC 03/21/2025 12:13:53 Nitro 200 mcg IC 03/21/2025 12:13:53 Nitro 200 mcg IC 03/21/2025 12:19:06 Nitro 200 mcg IC 03/21/2025 12:24:22 Verapamil 2.5mg, Ntg 200mcgs, 2000 units of Heparin given IA 03/21/2025 11:58:21 SUMMARY OF HEMODYNAMIC DATA Time AIR REST ECG 11:48:24 AO 139/84 (106) SA 12:01:05 AO 143/85 (111) 12:09:28 AO 133/77 (103) 12:24:41 AO 133/84 (103) 12:31:55 Signed By Remy Last MD On 03/21/2025 12:56:37 Remy Last MD
--- NOTE | 2025-04-14 09:46 | CL.D_ITS ---
Patient Name: MYNOR SHELL Study Date: 03/21/2025 Performing: Gutierrez Bernal MD Ht: 68 inches 172.72 cm : 1975 Wt: 236 lbs 107.05 kg Age: 50 Gender: male BSA: 2.19 PROCEDURE(S) PERFORMED DC01-(91792)LHC/COR/LV CLINICAL PROFILE AND INDICATIONS Indications: New Onset Angina <= 2 months Heart Failure: None Stress/Imaging Stress/Image Study Performed: No CAD Presentations: Unstable angina. CONCLUSIONS Multivessel disease with severe proximal LAD disease, diagonal disease, moderate circumflex disease, subtotally occluded right coronary artery with [id number] collaterals RECOMMENDATIONS Consider multivessel PCI DESCRIPTION OF PROCEDURE The patient arrived to the procedure lab. The risks and benefits of the procedure as well as a full description of our services here and current unavailability of surgical backup were fully explained to the patient and/or their significant other prior to the catheterization. The Timeout was completed, verifying the correct patient and procedure. The patient's procedural site was prepped and draped in the usual fashion. Local anesthetic was given subcutaneously to right radial region with Lidocaine 2%. Using a modified Seldinger technique, arterial access was obtained via the right radial artery, a 6Fr sheath was inserted. Earnest Monsalve RN Right Coronary Artery selective angiography was then performed in multiple views using a 5 Fr. 4.0 [place] catheter. Left Coronary Artery selective angiography was performed in multiple views using a 5 Fr. JL3.5 catheter. Left Ventriculography was performed in SCHMITT projection using a 5 Fr. Pigtail catheter. LV to AO pullback pressures were then recorded.The arterial sheath was pulled and a TR Band was applied for hemostasis CORONARY ANGIOGRAPHY DOMINANCE: Right Dominant LEFT HEART ASSESSMENT Left Ventricular Ejection Fraction: by LV Gram 55 % Normal LV wall motion LEFT MAIN: Angiographically normal LEFT ANTERIOR DESCENDING ARTERY: Long proximal to mid lesion incorporating the first diagonal branch with a 70% stenotic lesion. The first diagonal branch and left itself has a proximal 70 to 80% stenosis. The distal LAD has mild disease. CIRCUMFLEX ARTERY: Nondominant vessel with proximal 50% stenosis and mid 6070% stenosis in the first obtuse marginal branch. Lenc-dr-mifbk collaterals noted. RIGHT CORONARY ARTERY: SubTotally occluded mid right coronary artery vessel with [id number]-[id number] collaterals. COLLATERAL FLOW: Collateral flow from Left to Right COMPLICATIONS No Complications PROCEDURE MEDICATIONS Versed 1 mg IV Fentanyl 50 mcg IV Oxygen: 2 L/min via nasal cannula Brilinta 180 mg PO @ 03/21/2025 08:28:09 Heparin given IA 03/21/2025 07:45:05 Verapamil 2.5mg, Ntg 200mcgs, 2000 units of Heparin given IA 03/21/2025 07:45:05 SUMMARY OF HEMODYNAMIC DATA Time AIR REST ECG 06:50:32 AO 126/69 (94) SA 07:47:43 LV 114/-2, 11 08:01:16 LV 146/-2, 10 08:01:24 LV 137/-2, 7 08:01:59 LV 141/-1, 11 08:02:07 LVp 129/-3, 9 08:02:12 AOp 139/69 (101) 08:02:19 AIR REST 09:42:21 Signed By Gutierrez Bernal MD On 03/21/2025 09:44:34 Signed By Gutierrez Bernal MD On 03/21/2025 09:42:19 Gutierrez Bernal MD
== END 2025-03-22 10:00 | disposition home or self-care (01) ==
LOC: PCU 13:01 → CLSP 13:21 → PCU 13:21
PROVIDERS: Internal Medicine Cardiovascular Disease; Admitting Provider Internal Medicine Cardiovascular Disease; PCP Family Medicine; Referring Provider Internal Medicine Cardiovascular Disease; Visit Provider Internal Medicine Cardiovascular Disease
DX: I25.110 Atherosclerotic heart disease of native coronary artery with unstable angina pectoris (principal); Z79.82 Long term (current) use of aspirin; Z79.899 Other long term (current) drug therapy; K21.9 Gastro-esophageal reflux disease without esophagitis; R94.39 Abnormal result of other cardiovascular function study
CPT/HCPCS: 36415; 80053; 85027; 85347; 92928; 93005; 93458; 96360; 96361; 99152; 99153; 99221; C1894; Q9967; C1725; C1769; C1874; C1887; C9600; G0378

== ENCOUNTER 2025-05-27 07:18 | Day surgery (SDC) | payer OTHER, SELFPAY ==
[2025-05-06 10:25] LABS: Hematocrit 43.7 % (40-54); Hemoglobin 14.6 g/dL (13.0-16.5); Immature Granulocytes Count 0.020 X10^3/uL (0.0-0.0); Mean Corp Hgb Conc 33.4 g/dL (32-36); Mean Corpuscular Volume 88.3 fL (80-94); Mean Platelet Vol. 9.7 fl (6.2-12.0); NRBC Flagged by Analyzer 0 % (0-5); Platelet Count 396 K/mm3 (150-450); RBC Distribution Width CV 13.8 % (11.6-14.6); RBC Distribution Width SD 44.2 fl (35.1-43.9); Red Blood Count 4.95 M/mm3 (4.6-6.2); White Blood Count 6.0 K/mm3 (4.4-11.0)
[2025-05-06 10:50] LABS: Prothrombin Time (Protime)PT. 13.4 SECONDS (11.7-14.9)
[2025-05-06 11:21] LABS: Anion Gap 8 (5-15); BUN 9 mg/dL (4-19); BUN/Creat Ratio 9.2 RATIO (10-20); Calcium,Total 8.9 mg/dL (7.6-11.0); Carbon Dioxide 24.6 mmol/L (21.0-32.0); Chloride 107 mmol/L (98-108); Glucose 99 mg/dL (70-99); Potassium 4.0 mmol/L (3.3-5.1)
[2025-05-26 12:05] VITALS: BMI 33.7
--- OUTSIDE RECORDS SUMMARY | 2025-05-27 07:23 | XMS RPT_ITS | CCD ---
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 Everett Reid Primary Care Provider [phone] Radha Cruz Attending Provider Unavailable Dr. Irasema Martínez Attending Provider Dr. Irasema Martínez Referring Provider Dr. Irasema Martínez Other Provider 1([facility])[phone] Jeanette SALDIVAR, Dr. Manjarrez Primary Care Provider Dr. Loki Reid MD Attending Provider Dr. Loki Reid MD Referring Provider Dr. Loki Reid MD Other Provider [phone] Berhane SALDIVAR, Dr. Alberto Attending Provider Aminta Mariee Attending Provider Unavailable Dr. Gutierrez Bernal MD Attending Provider 1([facility])[phone] Dr. Gutierrez Bernal MD Referring Provider 1([facility])[phone] Dr. Gutierrez Bernal MD Admit Provider Dr. Remy Last MD Other Provider Levi Vanessa Attending Provider Loki Reid Primary Care Unavailable Remy Last Attending Unavailable Remy Last Referring Unavailable Levi Greer Consulting Unavailable Loki Reid Primary Care Unavailable Gutierrez Bernal Referring Unavailable Gutierrez Bernal Admitting Unavailable Remy Last Consulting Unavailable Gutierrez Bernal Attending Unavailable Aminta Mariee Attending Unavailable Loki Reid Primary Care Unavailable [facility] Primary Care Unavailable Gabe, Gutierrez Referring Unavailable Gabe, Gutierrez Attending [facility]available [facility] Unavailable Remy Last Attending Unavailable NavjotfresnoLoki Consulting Unavailable [facility] Referring Unavailable [facility] Primary Care Unavailable Gabe, [place] Attending Unavailable [facility] Referring Unavailable [facility] Unavailable Levi Greer Attending Unavailable [facility] Referring Unavailable [facility] Primary Care Unavailable [facility], Loki Attending Unavailable [facility] Referring Unavailable Gabe, [place] Referring Unavailable [facility] Unavailable Gabe, Gutierrez Attending Unavailable Medications Current Medications Medication Drug Class(es) Dates Sig (Normalized) Sig (Original) amLODIPine 2.5 mg oral tablet (3 sources) Dihydropyridine Calcium Channel Haylee Start: 03-21-2025 take 1 tablet by mouth once daily Amlodipine 2.5 mg Tablet Active 2.5 mg PO DAILY 30 March 21, 2025 12:00am aspirin 81 mg delayed release oral tablet (8 sources) Platelet Aggregation Inhibitor, Nonsteroidal Anti-inflammatory Drug Start: 02-20-2025 End: 03-19-2025 Aspirin (Adult Low Dose Aspirin) 81 mg tablet,delayed release (DR/EC) Active 81 mg PO daily 90 March 19, 2025 12:00am atorvastatin 40 mg oral tablet (4 sources) HMG-CoA Reductase Inhibitor Start: 03-19-2025 take 1 tablet by mouth once daily Atorvastatin (Lipitor) 40 mg tablet Active 40 mg PO daily 90 March 19, 2025 12:00am clopidogrel 75 mg oral tablet (3 sources) P2Y12 Platelet Inhibitor Start: 03-21-2025 take 1 tablet by mouth once daily Clopidogrel 75 mg Tablet Active 75 mg PO DAILY 30 March 21, 2025 12:00am 24 hr metoprolol succinate 25 mg extended release oral tablet (4 sources) beta-Adrenergic Haylee Start: 03-19-2025 take 1 tablet by mouth once daily Metoprolol Succinate (Toprol Xl) 25 mg tablet extended release 24 hr Active 25 mg PO daily 90 March 19, 2025 12:00am nitroglycerin 0.4 mg sublingual tablet (3 sources) Nitrate Vasodilator Start: 03-21-2025 Nitroglycerin (Nitrostat) 0.4 mg tablet, sublingual Active 0.4 mg SL Q5M as needed for chest pain 14 3 March 21, 2025 12:00am do not exceed 3 doses per episode Problems Problem Classification Problem Date Documented Date Episodic/Chronic Coronary atherosclerosis and other heart disease (3 sources) Coronary artery stenosis; Translations: [Atherosclerotic heart disease of [place] coronary artery without angina pectoris] Onset: 03-21-2025 03-24-2025 Chronic Coronary atherosclerosis and other heart disease (2 sources) Stented coronary artery; Translations: [Presence of coronary angioplasty implant and graft] Onset: 03-21-2025 03-24-2025 Episodic Comment on above: JOSE to mid RCA using Amanuel Macomb 3.0 X 38 mm: pt to have staged PCI to LAD Esophageal disorders (4 sources) Gastroesophageal reflux disease; Translations: [Gastro-esophageal reflux disease without esophagitis] 02-20-2025 Chronic Nonspecific chest pain (7 sources) Chest pain; Translations: [Chest pain, unspecified] Onset: 02-24-2025 02-20-2025 Episodic Other screening for suspected conditions (not mental disorders or infectious disease) (16 sources) Patient encounter status; Translations: [Encounter for screening for malignant neoplasm of colon] Onset: 03-24-2025 Episodic Unclassified (3 sources) This is your PCI, please arrive at 7:30a. Nothing to eat or drink after midnight. Results Test Name Value Interpretation Reference Range Facility Basic Metabolic Profile (BMP )on 05-06-2025 BUN/CRE 9.2 RATIO Low 10-20 [facility] Comment on above: Performed By: #### L 500.2500, L300.3900, L100.0100 #### [facility] [address] [place], [address] Calcium [Mass/Vol] 8.9 mg/dL Normal 7.6-11.0 [facility] Comment on above: Performed By: #### L 500.2500, L300.3900, L100.0100 #### [facility] [address] [place], [address] Chloride [Moles/Vol] 107 mmol/L Normal 98-108 [facility] Comment on above: Performed By: #### L 500.2500, L300.3900, L100.0100 #### [facility] [address] [place], [address] CO2 [Moles/Vol] 24.6 mmol/L Normal 21.0-32.0 [facility] Comment on above: Performed By: #### L 500.2500, L300.3900, L100.0100 #### [facility] [address] [place], [address] Creatinine [Mass/Vol] 0.99 mg/dL Normal 0.70-1.20 [facility] Comment on above: Performed By: #### L 500.2500, L300.3900, L100.0100 #### [facility] [address] [place], [address] GAP 8 Normal 5-15 [facility] Comment on above: Performed By: #### L 500.2500, L300.3900, L100.0100 #### [facility] [address] [place], [address] GFR/1.73 sq M.predicted among non-blacks MDRD (S/P/Bld) [Vol rate/Area] 93 mL/min/{1.73_m2} Normal >60 [facility] Comment on above: Result Comment: mL/m in/1.73m2 CKD-EPI Creatinine Equation (2020) Performed By: #### L 500.2500, L300.3900, L100.0100 #### [facility] [address] [place], [address] Glucose [Mass/Vol] 99 mg/dL Normal 70-99 [facility] Comment on above: Performed By: #### L 500.2500, L300.3900, L100.0100 #### [facility] [address] [place], [address] Potassium [Moles/Vol] 4.0 mmol/L Normal 3.3-5.1 [facility] Comment on above: Performed By: #### L 500.2500, L300.3900, L100.0100 #### [facility] [address] [place], [address] Sodium [Moles/Vol] 140 mmol/L Normal 133-145 [facility] Comment on above: Performed By: #### L 500.2500, L300.3900, L100.0100 #### [facility] [address] [place], [address] Urea nitrogen [Mass/Vol] 9 mg/dL Normal 4-19 [facility] Comment on above: Performed By: #### L 500.2500, L300.3900, L100.0100 #### [facility] [address] [place], [address] CBC W/Diff, Automatedon 09-0 2-2024 Absolute Lymph 1.37 X10 3/uL Normal 0.83-4.51 [facility] Comment on above: Performed By: #### L 500.2500, L300.3900, L100.0100 #### [facility] [address] [place], [address] Absolute Neut 3.7 X10 3/uL Normal 2.0-7.7 [facility] Comment on above: Performed By: #### L 500.2500, L300.3900, L100.0100 #### [facility] [address] [place], [address] Basophils/100 WBC (Bld) 0.8 % Normal 0-1 [facility] Comment on above: Performed By: #### L 500.2500, L300.3900, L100.0100 #### [facility] [address] [place], [address] Eosinophils/100 WBC (Bld) 2.6 % Normal 0-5 [facility] Comment on above: Performed By: #### L 500.2500, L300.3900, L100.0100 #### [facility] [address] [place], [address] Erythrocyte distribution width (RBC) [Ratio] 13.8 % Normal 11.6-14.6 [facility] Comment on above: Performed By: #### L 500.2500, L300.3900, L100.0100 #### [facility] [address] [place], [address] Hematocrit (Bld) [Volume fraction] 43.7 % Normal 40-54 [facility] Comment on above: Performed By: #### L 500.2500, L300.3900, L100.0100 #### [facility] [address] [place], [address] Hemoglobin (Bld) [Mass/Vol] 14.6 g/dL Normal 13.0-16.5 [facility] Comment on above: Performed By: #### L 500.2500, L300.3900, L100.0100 #### [facility] [address] [place], [address] IG% 0.300 Normal 0.0-0.9 [facility] Comment on above: Result Comment: IG% - Immature Granulocytes (promyelocytes, myelocytes and metamyelocytes) > 1% indicates that a LEFT SHIFT is Present. Performed By: #### L 500.2500, L300.3900, L100.0100 #### [facility] [address] [place], [address] Lymphocytes/100 WBC (Bld) 22.7 % Normal 19-41 [facility] Comment on above: Performed By: #### L 500.2500, L300.3900, L100.0100 #### [facility] [address] [place], [address] MCH (RBC) [Entitic mass] 29.5 pg Normal 27.0-32.0 [facility] Comment on above: Performed By: #### L 500.2500, L300.3900, L100.0100 #### [facility] [address] [place], [address] MCHC (RBC) [Mass/Vol] 33.4 g/dL Normal 32-36 [facility] Comment on above: Performed By: #### L 500.2500, L300.3900, L100.0100 #### [facility] [address] [place], [address] MCV (RBC) [Entitic vol] 88.3 fL Normal 80-94 [facility] Comment on above: Performed By: #### L 500.2500, L300.3900, L100.0100 #### [facility] [address] [place], [address] Monocytes/100 WBC (Bld) 12.4 % High 0-10 [facility] Comment on above: Performed By: #### L 500.2500, L300.3900, L100.0100 #### [facility] [address] [place], [address] Neutrophils/100 WBC (Bld) 61.2 % Normal 47-70 [facility] Comment on above: Performed By: #### L 500.2500, L300.3900, L100.0100 #### [facility] [address] [place], [address] Nucleated RBC (Bld) [#/Vol] 0 10*3/uL Normal 0-5 [facility] Comment on above: Performed By: #### L 500.2500, L300.3900, L100.0100 #### [facility] [address] [place], [address] Platelet mean volume (Bld) [Entitic vol] 9.7 fL Normal 6.2-12.0 [facility] Comment on above: Performed By: #### L 500.2500, L300.3900, L100.0100 #### [facility] [address] [place], [address] Platelets (Bld) [#/Vol] 396 10*3/uL Normal 150-450 [facility] Comment on above: Performed By: #### L 500.2500, L300.3900, L100.0100 #### [facility] [address] [place], [address] RBC (Bld) [#/Vol] 4.95 10*6/uL Normal 4.6-6.2 [facility] Comment on above: Performed By: #### L 500.2500, L300.3900, L100.0100 #### [facility] [address] [place], [address] RDW SD 44.2 fl High 35.1-43.9 [facility] Comment on above: Performed By: #### L 500.2500, L300.3900, L100.0100 #### [facility] [address] [place], [address] WBC (Bld) [#/Vol] 6.0 10*3/uL Normal 4.4-11.0 [facility] Comment on above: Performed By: #### L 500.2500, L300.3900, L100.0100 #### [facility] [address] [place], [address] Cardiology Visit Reporton Cardiology Visit Report [facility] [address] [place] [address] OFFICE VISIT Date of Service: 05/06/25 MR#: [id number] Acct: [id number] Name: MYNOR SHELL Jr. Rep #: [id number] : 1975 Provider: ARMIDA Vargas Age/Sex: 50/M Location: [facility] Status: Signed HPI HPI History of Present Illness Details: Mynor Shell is a 50-year-old male who presents to the office today for follow-up for monitoring his cardiovascular health. He is scheduled to undergo staged PCI 05/27/2025. He established with our office 03/19/2025 as a new patient after demonstrating concerns of chest discomfort for several months described as a heaviness radiating to his jaw and left arm. He underwent evaluation via exercise stress test where he exercised 9-1/2 minutes attaining 11.7 METS and did develop chest discomfort radiating to the jaw at this third stage of exercise which resolved 4 minutes into recovery. No EKG changes were observed during stress test. EKG in office at that time demonstrated sinus rhythm at a rate of 66 bpm and a previous inferior infarct. Patient was then evaluated via cardiac catheterization 03/21/2025 that demonstrated stenosis in the LAD at 70% with first diagonal branch 70-80%, nondominant circumflex artery with proximal 50% stenosis and mid 60-70% stenosis in the first obtuse marginal branch, subtotally occluded mid right RCA with [id number] collaterals. Patient underwent successful PTCA/JOSE to the mid RCA using Amanuel frontier 3.0 x 38 mm, postdilated using 3.5 mm balloon. He was recommended for staged PCI. Upon presentation today, patient reports doing well since his stent in March. He denies any recurrence of his chest pain, jaw pain, and shoulder pain. He denies SOB. He reports he bumped his right leg about 3-4 weeks ago and noticed significant bruising with a lump that has been slowly dissolving. He denies pain or significant swelling in his LE. Further ROS below. Intake Vital Signs 03/19/25 12:55 03/21/25 13:13 05/06/25 07:12 05/06/25 09:37 Height 5 ft 8 in 5 ft 8 in 5 ft 8 in Weight: 222 lb BMI 33.7 BP 160/88 H 120/82 H Blood Pressure Location Lt brachial Lt brachial Position Sitting Sitting Respiration 16 Pulse 47 L Pulse Source Monitor Pulse Oximetry (%) 100 Oxygen Delivery Method room air Intake Visit Reasons: HISTORY AND PHYSICAL [place] Setter Required: No Is patient in pain?: No Allergies No Known Allergies Allergy (Unverified 05/06/25 08:53) Medications ???Medication ???Instructions ???Recorded ???Confirmed ???Type aspirin 81 mg tablet,delayed 81 mg PO QDAY #90 tabs 03/19/25 Rx release (Adult Low Dose Aspirin) atorvastatin 40 mg tablet (Lipitor) 40 mg PO QDAY #90 tabs 03/19/25 05/06/25 Rx metoprolol succinate 25 mg 25 mg PO QDAY #90 tabs 03/19/25 Rx tablet,extended release 24 hr (Toprol XL) amlodipine 2.5 mg tablet 2.5 mg PO DAILY #30 tabs 03/21/25 05/06/25 Rx clopidogrel 75 mg tablet 75 mg PO DAILY #30 tabs 03/21/25 0 05/06/25 Rx nitroglycerin 0.4 mg sublingual 0.4 mg sublingual Q5M PRN chest 05/06/25 Rx tablet (Nitrostat) pain #14 tabs Have you fallen in the past year?: No PFSH Medical History Multi-vessel coronary artery stenosis (03/21/25) Abnormal stress test GERD (gastroesophageal reflux disease) Chest pain Surgical History Stented coronary artery (03/21/25) History of root canal procedure Hx of hand surgery Family History Father Prostate CA Hypertension Social History household members: spouse and children number of children: 3 current occupational status: employed current occupation: [employer] pets and animals: Yes Smoking Status: Never smoker alcohol intake: current details: Occasionally substance use type: does not use seatbelt use: always do you feel safe at home: Yes ROS Const Const: Negative for fatigue, weakness, headache(s) or frequent falls Eyes Eyes: Negative for blurry vision ENT ENT: Negative for headache(s), dizziness or Nosebleed/epistaxis Cardio Chest Pain: No Palpitations: No Edema: None Muscle aches with walking: None Resp Respiratory: Negative for SOB with activity, SOB at rest or SOB orthopnea SOB lying down GI GI: Negative nausea, vomiting, heartburn, bright, red blood in stools or black,tarry stools : Negative for hematuria Neuro Neuro: Negative for dizziness, lightheadedness, near syncope, syncope, frequent falls, headache(s), weakness or blurry vision Endo Endo: Negative for fatigue Cardiology Exam Const (more content not included)... Normal [facility] Prothrombin Time w/INRon INR Coag (PPP) [Relative time] 1.0 {INR} Normal [facility] Comment on above: Performed By: #### L 500.2500, L300.3900, L100.0100 #### [facility] [address] [place], [address] PT Coag (PPP) [Time] 13.4 s Normal 11.7-14.9 [facility] Comment on above: Performed By: #### L 500.2500, L300.3900, L100.0100 #### [facility] [address] [place], [address] Cardiac Cath Diagnosticon Cardiac Cath Diagnostic [facility] Imaging Services [address] [place] [address] Cardiac Cath Diagnostic MR#: [id number] Acct: [id number] Name: MYNOR SHELL AMARI Montgomery Rep #: [id number] : 1975 50 From: Gutierrez Bernal MD PCP: Dr. Loki Reid MD Status:DIS JARVIS Patient Name: MYNOR SHELL Study Date: 03/21/2025 Performing: Gutierrez Bernal MD Ht: 68 inches 172.72 cm : 1975 Wt: 236 lbs 107.05 kg Age: 50 Gender: male BSA: 2.19 PROCEDURE(S) PERFORMED DC01-(53978)LHC/COR/ LV CLINICAL PROFILE AND INDICATIONS Indications: New Onset Angina <= 2 months Heart Failure: None Stress/Imaging Stress/Image Study Performed: No CAD Presentations: Unstable angina. CONCLUSIONS Multivessel disease with severe proximal LAD disease, diagonal disease, moderate circumflex disease, subtotally occluded right coronary artery with [id number]-rgpeq collaterals RECOMMENDATIONS Consider multivessel PCI DESCRIPTION OF PROCEDURE The patient arrived to the procedure lab. The risks and benefits of the procedure as well as a full description of our services here and current unavailability of surgical backup were fully explained to the patient and/or their significant other prior to the catheterization. The Timeout was completed, verifying the correct patient and procedure. The patient's procedural site was prepped and draped in the usual fashion. Local anesthetic was given subcutaneously to right radial region with Lidocaine 2%. Using a modified Seldinger technique, arterial access was obtained via the right radial artery, a 6Fr sheath was inserted. Earnest Monsalve RN Right Coronary Artery selective angiography was then performed in multiple views using a 5 Fr. 4.0 [place] catheter. Left Coronary Artery selective angiography was performed in multiple views using a 5 Fr. JL3.5 catheter. Left Ventriculography was performed in SCHMITT projection using a 5 Fr. Pigtail catheter. LV to AO pullback pressures were then recorded.The arterial sheath was pulled and a TR Band was applied for hemostasis CORONARY ANGIOGRAPHY DOMINANCE: Right Dominant LEFT HEART ASSESSMENT Left Ventricular Ejection Fraction: by LV Gram 55 % Normal LV wall motion LEFT MAIN: Angiographically normal LEFT ANTERIOR DESCENDING ARTERY: Long proximal to mid lesion incorporating the first diagonal branch with a 70% stenotic lesion. The first diagonal branch and left itself has a proximal 70 to 80% stenosis. The distal LAD has mild disease. CIRCUMFLEX ARTERY: Nondominant vessel with proximal 50% stenosis and mid 6070% stenosis in the first obtuse marginal branch. Kxec-ke-davvi collaterals noted. RIGHT CORONARY ARTERY: SubTotally occluded mid right coronary artery vessel with [id number]-dzhny collaterals. COLLATERAL FLOW: Collateral flow from Left to Right COMPLICATIONS No Complications PROCEDURE MEDICATIONS Versed 1 mg IV Fentanyl 50 mcg IV Oxygen: 2 L/min via nasal cannula Brilinta 180 mg PO @ 03/21/2025 08:28:09 Heparin given IA 03/21/2025 07:45:05 Verapamil 2.5mg, Ntg 200mcgs, 2000 units of Heparin given IA 03/21/2025 07:45:05 SUMMARY OF HEMODYNAMIC DATA Time AIR REST ECG 06:50:32 AO 126/69 (94) SA 07:47:43 LV 114/-2, 11 08:01:16 LV 146/-2, 10 08:01:24 LV 137/-2, 7 08:01:59 LV 141/-1, 11 08:02:07 LVp 129/-3, 9 08:02:12 AOp 139/69 (101) 08:02:19 AIR REST 09:42:21 Signed By Gutierrez Bernal MD On 03/21/2025 09:44:34 Signed By Gutierrez Bernal MD On 03/21/2025 09:42:19 Gutierrez Bernal MD 04/14/25 0946 Date Gutierrez Segovia Signature: Date (if indicated) CC: Dr. Loki Reid MD; Dr. Gutierrez Bernal MD Date Dictated: 03/21/2540 Date Transcribed: 03/21/25 0944 Card Reader: CO Signed Normal [facility] Cardiac Cath Interventionon 04-14-2025 Cardiac Cath Intervention [facility] [address] [place] [id number] Cardiac Cath Intervention MR#: [id number] Acct: [id number] Name: MYNOR SHELL Jr. Rep #: [id number] : 1975 50 From: Remy Last MD PCP: Dr. Loki Reid MD Status:DIS JARVIS Patient Name: MYNOR SHELL Study Date: 03/21/2025 Performing: Remy Last MD Ht: 68 inches 172.72 cm : 1975 Wt: 236.3 lbs 107.05 kg Age: 50 Gender: male BSA: 2.19 PROCEDURE(S) PERFORMED IC12-(14543/C9600)DE S W/WO PTCA, SINGLE CORONARY ARTERY CLINICAL PROFILE AND CO-MORBIDITIES Indications: New Onset Angina <= 2 months Heart Failure: None Angina Classification Anginal Classification w/in 2 Weeks: CCS III CAD Presentations: Stable angina. Unstable angina. CONCLUSIONS Successful PTCA/JOSE Mid RCA uisng Amanuel Macomb 3.0x38 mm, post-dilated using 3.5 mm balloon RECOMMENDATIONS ASA Indefinitley P2Y12 inhibitors for atleast 6 months Staged PCI to LAD DESCRIPTION OF PROCEDURE The patient arrived to the procedure lab. The risks and benefits of the procedure as well as a full description of our services here and current unavailability of surgical backup were fully explained to the patient and/or their significant other prior to the catheterization. The Timeout was completed, verifying the correct patient and procedure. The patient's procedural site was prepped and draped in the usual fashion. Local anesthetic was given subcutaneously to right radial region with Lidocaine 2%. Using a modified Seldinger technique, arterial access was obtained via the right radial artery, a 6Fr sheath was inserted.. AL0.75 Guide catheter was inserted and engaged into the RCA. Runthrough Guide wire was advanced to the RCA. SC Euphora 1.5x12 Balloon catheter was inserted. PTCA balloon inflated at 10 atms for 7 secs. PTCA balloon inflated at 10 atms for 7 secs. PTCA balloon inflated at 14 atms for 8 secs. Angiogram performed post balloon dilatation. SC Euphora 2.5x15 Balloon catheter was inserted. PTCA balloon inflated at 8 atms for 5 secs. PTCA balloon inflated at 10 atms for 6 secs. PTCA balloon inflated at 8 atms for 4 secs. PTCA balloon inflated at 8 atms for 11 secs. PTCA balloon inflated at 10 atms for 7 secs. Angiogram performed post balloon dilatation. Macomb Ganado 3.0x38 Drug Eluting stent was inserted. Angiogram performed post stent deployment. NC Emerge 3.25x20 Balloon catheter was inserted. NC Emerge 3.50x12 Balloon catheter was inserted. Angiogram performed post balloon dilatation. The arterial sheath was pulled and a TR Band was applied for hemostasis w/ 9ml air INTERVENTION INFORMATION LESION SITE: RCA (Mid) Lesion Complexity: High/C, lesion length: 36 mm, culprit lesion: Yes, In-stent restenosis: No Pre Stenosis: 99 % Pre intervention LAILA flow: 2 PROCEDURE: Drug Eluting Stent with pre and post dilatation Post Stenosis: 0 % Post intervention LAILA flow: 3 Lesion Devices: Terumo .014 180cm Runthrough Extra Floppy straight Cordis 6 Fr AL.75 100cm Guide Catheter Medtronic SC EUPHORA RX 1.5x12 BALLOON [employer]tronic SC EUPHORA RX 2.5x15 BALLOON Medtronic 3.0 x 38 AMANUEL FRONTIER JOSE [employer] [place] EMERGE MR 3.25x20 BALLOON [employer] [place] EMERGE MR 3.50x12 BALLOON COMPLICATIONS No Complications PROCEDURE MEDICATIONS Versed 1 mg IV Fentanyl 50 mcg IV Oxygen: 2 L/min via nasal cannula Heparin given IA 03/21/2025 11:58:21 Heparin 6000 unit(s) IV 03/21/2025 11:59:59 Heparin 4000 unit(s) IV 03/21/2025 12:47:03 Nitro 200 mcg IC 03/21/2025 12:13:53 Nitro 200 mcg IC 03/21/2025 12:13:53 Nitro 200 mcg IC 03/21/2025 12:19:06 Nitro 200 mcg IC 03/21/2025 12:24:22 Verapamil 2.5mg, Ntg 200mcgs, 2000 units of Heparin given IA 03/21/2025 11:58:21 SUMMARY OF HEMODYNAMIC DATA Time AIR REST ECG 11:48:24 AO 139/84 (106) SA 12:01:05 AO 143/85 (111) 12:09:28 AO 133/77 (103) 12:24:41 AO 133/84 (103) 12:31:55 Signed By Remy Last MD On 03/21/2025 12:56:37 Remy Last MD 04/14/25 0946 Date Remy Last MD [facility] Signature: Date (if indicated) CC: Dr. Remy Last MD; Dr. Loki Reid MD; Dr. Gutierrez Bernal MD Date Dictated: 03/21/25 1156 Date Transcribed: 03/21/25 1256 Card Reader: POLLO Signed Normal [facility] Anion gap in Serum or Plasma Ordered By: Remy Last on 03-22-2025 Anion gap [Moles/Vol] 8 mmol/L - [facility] BUN/creatinine ratioOrdered By: Remy Last on 03-22-2025 Urea nitrogen/Creatinine [Mass ratio] 12.1 mg/mg - [facility] Bilirubin, totalOrdered By: Remy Last on 03-22-2025 Bilirubin [Mass/Vol] 0.71 mg/dL 0.00-1.30 [facility] CBC-Complete Blood Cnt No Di ffon 03-22-2025 Erythrocyte distribution width (RBC) [Ratio] 14.0 % Normal 11.6-14.6 [facility] Comment on above: Performed By: #### L 100.0500, L500.4050 ####[facility] [address] [place], [address] Hematocrit (Bld) [Volume fraction] 41.3 % Normal 40-54 [facility] Comment on above: Performed By: #### L 100.0500, L500.4050 ####[facility] [address] [facility] [place], [address] Hemoglobin (Bld) [Mass/Vol] 14.3 g/dL Normal 13.0-16.5 [facility] Comment on above: Performed By: #### L 100.0500, L500.4050 ####[facility] [address] [place], [address] MCH (RBC) [Entitic mass] 29.8 pg Normal 27.0-32.0 [facility] Comment on above: Performed By: #### L 100.0500, L500.4050 ####[facility] [address] [place], [address] MCHC (RBC) [Mass/Vol] 34.6 g/dL Normal 32-36 [facility] Comment on above: Performed By: #### L 100.0500, L500.4050 ####[facility] [address] [place], [address] MCV (RBC) [Entitic vol] 86.0 fL Normal 80-94 [facility] Comment on above: Performed By: #### L 100.0500, L500.4050 ####[facility] [address] [place], [address] Platelet mean volume (Bld) [Entitic vol] 9.3 fL Normal 6.2-12.0 [facility] Comment on above: Performed By: #### L 100.0500, L500.4050 ####[facility] [address] [place], [address] Platelets (Bld) [#/Vol] 372 10*3/uL Normal 150-450 [facility] Comment on above: Performed By: #### L 100.0500, L500.4050 ####[facility] [address] [place], [address] RBC (Bld) [#/Vol] 4.80 10*6/uL Normal 4.6-6.2 [facility] Comment on above: Performed By: #### L 100.0500, L500.4050 ####[facility] [address] [place], [address] RDW SD 44.1 fl High 35.1-43.9 [facility] Comment on above: Performed By: #### L 100.0500, L500.4050 ####[facility] [address] [place], [address] WBC (Bld) [#/Vol] 8.9 10*3/uL Normal 4.4-11.0 [facility] Comment on above: Performed By: #### L 100.0500, L500.4050 ####[facility] [address] [place], [address] Carbon dioxide, total [Moles /volume] in Central venous bloodOrdered By: Remy Last on 03-22-2025 CO2 [Moles/Vol] 19.6 mmol/L Low 21.0-32.0 [facility] Chloride assayOrdered By: Pollo Last on 03-22-2025 Chloride [Moles/Vol] 107 mmol/L 98-108 [facility] Comprehensive Metabolic Prof ilon 03-22-2025 Albumin [Mass/Vol] 3.9 g/dL Normal 3.5-5.0 [facility] Comment on above: Performed By: #### L 100.0500, L500.4050 ####[facility] [address] [place], [address] Albumin/Globulin [Mass ratio] 1.5 {ratio} Normal 0.9-2.4 [facility] Comment on above: Performed By: #### L 100.0500, L500.4050 ####[facility] [address] [place], [address] ALK PHOS 92 U/L Normal 40-129 [facility] Comment on above: Performed By: #### L 100.0500, L500.4050 ####[facility] [address] [place], [address] ALT [Catalytic activity/Vol] 18 U/L Normal <=46 [facility] Comment on above: Performed By: #### L 100.0500, L500.4050 ####[facility] [address] [place], [address] AST [Catalytic activity/Vol] 20 U/L Normal <=37 [facility] Comment on above: Performed By: #### L 100.0500, L500.4050 ####[facility] [address] [place], [address] Bilirubin [Mass/Vol] 0.71 mg/dL Normal 0.00-1.30 [facility] Comment on above: Performed By: #### L 100.0500, L500.4050 ####[facility] [address] [place], [address] BUN/CRE 12.1 RATIO Normal 10-20 [facility] Comment on above: Performed By: #### L 100.0500, L500.4050 ####[facility] [address] [place], [address] Calcium [Mass/Vol] 8.4 mg/dL Normal 7.6-11.0 [facility] Comment on above: Performed By: #### L 100.0500, L500.4050 ####[facility] [address] [place], [address] Chloride [Moles/Vol] 107 mmol/L Normal 98-108 [facility] Comment on above: Performed By: #### L 100.0500, L500.4050 ####[facility] [address] [place], [address] CO2 [Moles/Vol] 19.6 mmol/L Low 21.0-32.0 [facility] Comment on above: Performed By: #### L 100.0500, L500.4050 ####[facility] [address] [place], [address] Creatinine [Mass/Vol] 1.07 mg/dL Normal 0.70-1.20 [facility] Comment on above: Performed By: #### L 100.0500, L500.4050 ####[facility] [address] [place], [address] ECRCL 97.97 ml/min Normal 50-250 [facility] Comment on above: Performed By: #### L 100.0500, L500.4050 ####[facility] [address] [place], [address] GAP 8 Normal 5-15 [facility] Comment on above: Performed By: #### L 100.0500, L500.4050 ####[facility] [address] [place], [address] GFR/1.73 sq M.predicted among non-blacks MDRD (S/P/Bld) [Vol rate/Area] 85 mL/min/{1.73_m2} Normal >60 [facility] Comment on above: Result Comment: mL/m in/1.73m2 CKD-EPI Creatinine Equation (2020) Performed By: #### L 100.0500, L500.4050 ####[facility] [address] [place], [address] Globulin (S) [Mass/Vol] 2.5 g/dL Normal 2.2-4.2 [facility] Comment on above: Performed By: #### L 100.0500, L500.4050 ####[facility] [address] [place], [address] Glucose [Mass/Vol] 102 mg/dL High 70-99 [facility] Comment on above: Performed By: #### L 100.0500, L500.4050 ####[facility] [address] [place], [address] Potassium [Moles/Vol] 3.8 mmol/L Normal 3.3-5.1 [facility] Comment on above: Performed By: #### L 100.0500, L500.4050 ####[facility] [address] [place], [address] Sodium [Moles/Vol] 135 mmol/L Normal 133-145 [facility] Comment on above: Performed By: #### L 100.0500, L500.4050 ####[facility] [address] [place], [address] T PROT 6.4 g/dL Normal 5.9-8.4 [facility] Comment on above: Performed By: #### L 100.0500, L500.4050 ####[facility] [address] [place], [address] Urea nitrogen [Mass/Vol] 13 mg/dL Normal -19 [facility] Comment on above: Performed By: #### L 100.0500, L500.4050 ####[facility] [address] [place], [address] Erythrocyte distribution wid th ratioOrdered By: Remy Last on 03-22-2025 Erythrocyte distribution width (RBC) [Ratio] 14.0 % 11.6-14.6 [facility] Erythrocyte distribution wid th standard deviationOrdered By: Remy Last on 03-22-2025 Erythrocyte distribution width (RBC) [Ratio] 44.1 fl High 35.1-43.9 [facility] Glomerular filtration rate ( GFR) estimation/1.73 sq m using serum, plasma, or whole bOrdered By: Remy Last on 03-22-2025 GFR/1.73 sq M.predicted among non-blacks MDRD (S/P/Bld) [Vol rate/Area] 85 mL/min/{1.73_m2} >60 [facility] Comment on above: mL/min/1.73m2 CKD-EP I Creatinine Equation (2020) Hematocrit Auto (Bld) [Volum e fraction]Ordered By: Remy Last on 03-22-2025 Hematocrit (Bld) [Volume fraction] 41.3 % 40-54 [facility] Hemoglobin measurementOrdere d By: Remy Last on 03-22-2025 Hemoglobin (Bld) [Mass/Vol] 14.3 g/dL 13.0-16.5 [facility] Laboratory - Chemistry and C hemistry - challengeOrdered By: Remy Last on 03-22-2025 AST [Catalytic activity/Vol] 20 U/L <38 [facility] MCV (mean corpuscular volume ) determinationOrdered By: Remy Last on 03-22-2025 MCV (RBC) [Entitic vol] 86.0 fL 80-94 [facility] Mean corpuscular hemoglobin (MCH) determinationOrdered By: Remy Last on 03-22-2025 MCH (RBC) [Entitic mass] 29.8 pg 27.0-32.0 [facility] Mean corpuscular hemoglobin concentration (MCHC) determinationOrdered By: Remy Last on 03-22-2025 MCHC (RBC) [Mass/Vol] 34.6 g/dL 32-36 [facility] Mean platelet volume determi nationOrdered By: Remy Last on 03-22-2025 Platelet mean volume (Bld) [Entitic vol] 9.3 fL 6.2-12.0 [facility] Platelet countOrdered By: Pollo Last on 03-22-2025 Platelets (Bld) [#/Vol] 372 10*3/uL 150-450 [facility] Potassium measurement (mass/ volume)Ordered By: Remy Last on 03-22-2025 Potassium (Unsp spec) [Mass/Vol] 3.8 mmol/L 3.3-5.1 [facility] RBC Auto (Bld) [#/Vol]Ordere d By: Remy Last on 03-22-2025 RBC (Bld) [#/Vol] 4.80 10*6/uL 4.6-6.2 [facility] Serum creatinine measurement (mass/volume)Ordered By: Remy Last on 03-22-2025 Creatinine [Mass/Vol] 1.07 mg/dL 0.70-1.20 [facility] Serum globulin measurementOr dered By: Remy Last on 03-22-2025 Globulin (S) [Mass/Vol] 2.5 g/dL 2.2-4.2 [facility] Serum glucose measurement (m ass/volume)Ordered By: Remy Last on 03-22-2025 Glucose [Mass/Vol] 102 mg/dL High 70-99 [facility] Serum or plasma alanine stewart otransferase (ALT) measurementOrdered By: Remy Last on 03-22-2025 ALT [Catalytic activity/Vol] 18 U/L <47 [facility] Serum or plasma albumin jaylan urement (mass/volume)Ordered By: Remy Last on 03-22-2025 Albumin [Mass/Vol] 3.9 g/dL 3.5-5.0 [facility] Serum or plasma albumin/glob ulin mass ratioOrdered By: Remy Last on 03-22-2025 Albumin/Globulin [Mass ratio] 1.5 {ratio} 0.9-2.4 [facility] Serum or plasma alkaline jessica sphatase measurementOrdered By: Remy Last on 03-22-2025 ALP [Catalytic activity/Vol] 92 U/L 40-129 [facility] Serum or plasma calcium jaylan urement (mass/volume)Ordered By: Remy Last on 03-22-2025 Calcium [Mass/Vol] 8.4 mg/dL 7.6-11.0 [facility] Serum or plasma urea nitroge n measurement (mass/volume)Ordered By: Remy Last on 03-22-2025 Urea nitrogen [Mass/Vol] 13 mg/dL 4-19 [facility] Sodium levelOrdered By: Jose Last on 03-22-2025 Sodium [Moles/Vol] 135 mmol/L 133-145 [facility] Total proteinOrdered By: Zach Last on 03-22-2025 Protein [Mass/Vol] 6.4 g/dL 5.9-8.4 [facility] White blood cell (WBC) count Ordered By: Remy Last on 03-22-2025 WBC (Bld) [#/Vol] 8.9 10*3/uL 4.4-11.0 [facility] 12 Lead EKGon 03-21-2025 12 Lead EKG [facility] [address] [place] [address] 12 Lead EKG 03/21/25 1331 MR#: [id number] Acct: [id number] Name: MYNOR SHELL Jr. Rep #: [id number] : 1975 50 From: Osmani Ortega MD Attending Dr: Dr. Gutierrez Bernal MD Status: DIS I NO Ordering Dr: Remy Last MD Date: 03/21/25 Location: [facility] Sex: M C Admitted: 03/21/25 Test Reason : POSTPCI Blood Pressure : */* mmHG Vent. Rate : 55 BPM Atrial Rate : 55 BPM P-R Int : 168 ms QRS Dur : 92 ms QT Int : 446 ms P-R-T Axes : 26 46 -42 degrees QTcB Int : 426 ms Sinus bradycardia Inferior infarct (cited on or before 19-Mar-2025) Abnormal ECG When compared with ECG of 19-Mar-2025 13:06, No significant change was found Confirmed by Osmani Ortega ([id number]), social media editor KERI CHEN ([id number]) on 03/25/2025 5:43:26 AM Referred By: Gutierrez Bernal Confirmed By: Osmani Ortega 03/25/25 0543 Date Osmani Ortega MD CC: Dr. Remy Last MD; Dr. Loki Reid MD; Dr. Gutierrez Bernal MD Signed Normal [facility] ACT Activated Clotting Timeo n 03-21-2025 ACTk CLOT TIME 193 sec High 74-137 [facility] Comment on above: Performed By: #### L 9100.0100 ####[facility] [address] [place], [address] Discharge Instructionon 03-04 Discharge Instruction [facility] Medical Records Department [address] [place] [address] Instructions for Home/Discharge Instructions 03/21/25 1300 MR#: [id number] Acct: [id number] Name: MYNOR SHELL Jr. Rep #: [id number] : 1975 50 From: Remy Last MD PCP: Dr. Loki Reid MD Status:REG SDC Discharge Instructions DC O2, CPAP, BIPAP needs Home O2 Discharge instructions: No Dressing / Incision Discharge Activity: Return to Normal Activity Dressing / Incision Call your doctor if your incision/area has: Continuous Slow Oozing, Sudden Increased Bleeding, Increased Pain/ Swelling, Increased Redness and Foul Smelling Discharge Call your doctor if you observe: Fever of 101 or Higher, Coldness, Increased Pain, Numbness or Tingling and Change in Color Follow Up Care Please Follow Up With: Gutierrez Bernal MD When: 1-2 weeks Test Results: Test results from this visit will be discussed in further detail at your follow-up appointment, if applicable. Discharge Plan Admission Attending Provider: Gutierrez Bernal Primary Care Provider: Loki Reid Instructions Print Language: [place] Discharge Orders/Prescriptions Prescriptions: New amlodipine 2.5 mg Tablet 2.5 mg PO DAILY Qty: 30 6RF clopidogrel 75 mg Tablet 75 mg PO DAILY Qty: 30 11RF nitroglycerin [Nitrostat] 0.4 mg tablet, sublingual 0.4 mg sublingual Q5M PRN (Reason: chest pain) Qty: 14 3RF Rx Instructions: do not exceed 3 doses per episode Continued metoprolol succinate [Toprol XL] 25 mg tablet extended release 24 hr 25 mg PO QDAY Qty: 90 2RF atorvastatin [Lipitor] 40 mg tablet 40 mg PO QDAY Qty: 90 3RF aspirin [Adult Low Dose Aspirin] 81 mg tablet,delayed release (DR/EC) 81 mg PO QDAY Qty: 90 3RF Referrals / Follow Up: Loki Reid MD [Primary Care Provider] - Disposition Disposition (needs filled in before D/C Order can be placed): Home, Self Care 03/21/25 1305 Remy Last MD CC: Dr. Loki Reid MD Signed Normal [facility] Absolute lymphocyte countOrd ered By: Gutierrez Bernal on 03-19-2025 Lymphocytes Auto (Unsp spec) [#/Vol] 2.04 10*3/uL 0.83-4.51 [facility] Absolute neutrophil countOrd ered By: [place] Gabe on 03-19-2025 Neutrophils (Bld) [#/Vol] 4.5 10*3/uL 2.0-7.7 [facility] Anion gap in Serum or Plasma Ordered By: [place] [facility] on 03-19-2025 Anion gap [Moles/Vol] 13 mmol/L - [facility] Automated lymphocyte count a s percentage of total leukocytesOrdered By: [place] [facility] on 03-19-2025 Lymphocytes/100 WBC Auto (Unsp spec) 25.5 % - [facility] BUN/creatinine ratioOrdered By: [place] [facility] on 03-19-2025 Urea nitrogen/Creatinine [Mass ratio] 16.1 mg/mg - [facility] Basic Metabolic Profile (BMP )on 03-19-2025 BUN/CRE 16.1 RATIO Normal - [facility] Comment on above: Performed By: #### L 100.0100, L500.2500 ####[facility] [address] [place], [address] Calcium [Mass/Vol] 9.1 mg/dL Normal 7.6-11.0 [facility] Comment on above: Performed By: #### L 100.0100, L500.2500 ####[facility] [address] [place], [address] Chloride [Moles/Vol] 102 mmol/L Normal 98-108 [facility] Comment on above: Performed By: #### L 100.0100, L500.2500 ####[facility] [address] [place], [address] CO2 [Moles/Vol] 21.6 mmol/L Normal 21.0-32.0 [facility] Comment on above: Performed By: #### L 100.0100, L500.2500 ####[facility] [address] [place], [address] Creatinine [Mass/Vol] 1.08 mg/dL Normal 0.70-1.20 [facility] Comment on above: Performed By: #### L 100.0100, L500.2500 ####[facility] [address] [place], [address] GAP 13 Normal 5-15 [facility] Comment on above: Performed By: #### L 100.0100, L500.2500 ####[facility] [address] [place], [address] GFR/1.73 sq M.predicted among non-blacks MDRD (S/P/Bld) [Vol rate/Area] 84 mL/min/{1.73_m2} Normal >60 [facility] Comment on above: Result Comment: mL/m in/1.73m2 CKD-EPI Creatinine Equation (2020) Performed By: #### L 100.0100, L500.2500 ####[facility] [address] [place], [address] Glucose [Mass/Vol] 94 mg/dL Normal 70-99 [facility] Comment on above: Performed By: #### L 100.0100, L500.2500 ####[facility] [address] [place], [address] Potassium [Moles/Vol] 3.6 mmol/L Normal 3.3-5.1 [facility] Comment on above: Result Comment: Hemo lysis present, Results??could be affected. ?? Performed By: #### L 100.0100, L500.2500 ####[facility] [address] [place], [address] Sodium [Moles/Vol] 137 mmol/L Normal 133-145 [facility] Comment on above: Performed By: #### L 100.0100, L500.2500 ####[facility] [address] [place], [address] Urea nitrogen [Mass/Vol] 17 mg/dL Normal 4-19 [facility] Comment on above: Performed By: #### L 100.0100, L500.2500 ####[facility] [address] [place], [address] Basophil percentageOrdered B y: Gutierrez Gabe on 03-19-2024 Basophils/100 WBC (Bld) 0.8 % 0-1 [facility] CBC W/Diff, Automatedon 03-04-2024 Absolute Lymph 2.04 X10 3/uL Normal 0.83-4.51 [facility] Comment on above: Performed By: #### L 100.0100, L500.2500 #### [facility] [address] [place], [address] Absolute Neut 4.5 X10 3/uL Normal 2.0-7.7 [facility] Comment on above: Performed By: #### L 100.0100, L500.2500 #### [facility] [address] [place], [address] Basophils/100 WBC (Bld) 0.8 % Normal 0-1 [facility] Comment on above: Performed By: #### L 100.0100, L500.2500 #### [facility] [address] [place], [address] Eosinophils/100 WBC (Bld) 3.8 % Normal 0-5 [facility] Comment on above: Performed By: #### L 100.0100, L500.2500 #### [facility] [address] [place], [address] Erythrocyte distribution width (RBC) [Ratio] 13.9 % Normal 11.6-14.6 [facility] Comment on above: Performed By: #### L 100.0100, L500.2500 #### [facility] [address] [place], [address] Hematocrit (Bld) [Volume fraction] 45.5 % Normal 40-54 [facility] Comment on above: Performed By: #### L 100.0100, L500.2500 #### [facility] [address] [place], [address] Hemoglobin (Bld) [Mass/Vol] 15.1 g/dL Normal 13.0-16.5 [facility] Comment on above: Performed By: #### L 100.0100, L500.2500 #### [facility] [address] [place], [address] IG% 0.300 Normal 0.0-0.9 [facility] Comment on above: Result Comment: IG% - Immature Granulocytes (promyelocytes, myelocytes and metamyelocytes) > 1% indicates that a LEFT SHIFT is Present. Performed By: #### L 100.0100, L500.2500 #### [facility] [address] [place], [address] Lymphocytes/100 WBC (Bld) 25.5 % Normal 19-41 [facility] Comment on above: Performed By: #### L 100.0100, L500.2500 #### [facility] [address] [place], [address] MCH (RBC) [Entitic mass] 29.2 pg Normal 27.0-32.0 [facility] Comment on above: Performed By: #### L 100.0100, L500.2500 #### [facility] [address] [place], [address] MCHC (RBC) [Mass/Vol] 33.2 g/dL Normal 32-36 [facility] Comment on above: Performed By: #### L 100.0100, L500.2500 #### [facility] [address] [place], [address] MCV (RBC) [Entitic vol] 88.0 fL Normal 80-94 [facility] Comment on above: Performed By: #### L 100.0100, L500.2500 #### [facility] [address] [place], [address] Monocytes/100 WBC (Bld) 13.8 % High 0-10 [facility] Comment on above: Performed By: #### L 100.0100, L500.2500 #### [facility] [address] [place], [address] Neutrophils/100 WBC (Bld) 55.8 % Normal 47-70 [facility] Comment on above: Performed By: #### L 100.0100, L500.2500 #### [facility] [address] [place], [address] Nucleated RBC (Bld) [#/Vol] 0 10*3/uL Normal 0-5 [facility] Comment on above: Performed By: #### L 100.0100, L500.2500 #### [facility] [address] [place], [address] Platelet mean volume (Bld) [Entitic vol] 9.7 fL Normal 6.2-12.0 [facility] Comment on above: Performed By: #### L 100.0100, L500.2500 #### [facility] [address] [place], [address] Platelets (Bld) [#/Vol] 467 10*3/uL High 150-450 [facility] Comment on above: Performed By: #### L 100.0100, L500.2500 #### [facility] [address] [place], [address] RBC (Bld) [#/Vol] 5.17 10*6/uL Normal 4.6-6.2 [facility] Comment on above: Performed By: #### L 100.0100, L500.2500 #### [facility] [address] [place], [address] RDW SD 44.6 fl High 35.1-43.9 [facility] Comment on above: Performed By: #### L 100.0100, L500.2500 #### [facility] [address] [place], [address] WBC (Bld) [#/Vol] 8.0 10*3/uL Normal 4.4-11.0 [facility] Comment on above: Performed By: #### L 100.0100, L500.2500 #### [facility] [address] [place], [address] Carbon dioxide, total [Moles /volume] in Central venous bloodOrdered By: Gutierrez Bernal on 03-19-2025 CO2 [Moles/Vol] 21.6 mmol/L 21.0-32.0 [facility] Cardiology Visit Reporton Cardiology Visit Report [facility] [address] [place], [place] [address] OFFICE VISIT Date of Service: 03/19/25 MR#: [id number] Acct: [id number] Name: MYNOR SHELL JrJasper Rep #: [id number] : 1975 Provider: Dr. Gutierrez Bernal MD Age/Sex: 50/M Location: [facility] Status: Signed HPI HPI History of Present Illness Details: 50-year-old man with no previous cardiac history who has been having chest discomfort over the last few months. He describes this as a heaviness in his chest radiating to his jaw as well as his left arm. It occurs with exercise and goes away with rest he has never had any rest discomfort. He discusses this as a dull ache it lasts about 20 minutes and as part of his workup he underwent an exercise stress test where he exercised for 9-1/2 minutes attaining 11.7 METS he did develop chest discomfort radiating to the jaw at the third stage of exercise which resolved 4 minutes into recovery. No EKG wave changes were noted. He was referred to us for further evaluation and management. His blood pressure at peak was 184/82 mmHg. His physical exam is unremarkable and his electrocardiogram demonstrates sinus rhythm with a rate of 66 bpm and a previous inferior infarct. Intake Vital Signs 01/17/22 08:16 03/19/25 12:55 Height 5 ft 8 in 5 ft 8 in Weight: 236 lb BMI 35.9 BP 142/86 H Blood Pressure Location Lt brachial Position Sitting Respiration 16 Pulse 70 Pulse Source Monitor Intake Visit Reasons: CP/ABN STRESS (Jeanette) [employer]ter Required: No Accompanied by: Self Is patient in pain?: No Allergies No Known Allergies Allergy (Unverified 03/19/25 13:00) Medications ???Medication ???Instructions ???Recorded ???Confirmed ???Type aspirin 81 mg tablet,delayed 81 mg PO QDAY #90 tabs 03/19/25 Rx release (Adult Low Dose Aspirin) atorvastatin 40 mg tablet (Lipitor) 40 mg PO QDAY #90 tabs 03/19/25 03/19/25 Rx metoprolol succinate 25 mg 25 mg PO QDAY #90 tabs 03/19/25 Rx tablet,extended release 24 hr (Toprol XL) [facility] Medical History Abnormal stress test GERD (gastroesophageal reflux disease) Chest pain Surgical History History of root canal procedure Hx of hand surgery Family History Father Prostate CA Hypertension Social History household members: spouse and children number of children: 3 current occupational status: employed current occupation: [employer] pets and animals: Yes Smoking Status: Never smoker alcohol intake: current details: Occasionally substance use type: does not use seatbelt use: always do you feel safe at home: Yes ROS Const Const: Negative for fatigue, weakness, headache(s), daytime sleepiness or difficulty sleeping ENT ENT: Negative for headache(s), dizziness or Nosebleed/epistaxis Cardio Chest Pain: Yes Frequency: weekly and more than once a day Character: dull Onset: exercise Location: mid sternal and left chest Palpitations: No Edema: None Resp Respiratory: Positive for SOB with activity (with exertion); Negative for SOB at rest, SOB orthopnea SOB lying down or Cough GI GI: Negative nausea, vomiting or heartburn Neuro Neuro: Negative for dizziness, lightheadedness, near syncope, headache(s) or weakness Endo Endo: Negative for fatigue Cardiology Exam Const Appearance: cooperative, healthy appearing, no acute distress, well developed and well groomed Nutritional Appearance: average body habitus and well nourished Orientation: alert, awake and oriented x3 Head Head: normal to inspection, normocephalic and atraumatic Ears: hearing grossly normal bilaterally and external ears normal Nose: external nose normal, nares normal, nasal mucous membranes and turbinates normal, septum normal and no nasal discharge Face and Sinus: face symmetric Mouth: oral mucosae normal, tongue normal, oropharynx normal and moist mucous membranes Teeth and gingiva: dentition normal Throat: posterior oropharynx normal, tonsils normal and uvula midline Eyes General: appearance normal, both eyes and all related structures Eyelids: eyelids normal Conjunctivae: conjunctivae normal Pupils: PERRL, normal by confrontation and accommodation normal EOM: EOM intact bilaterally Neck Neck: normal visual inspection, trachea midline and no JVD JVD: +5 Carotids: normal carotid upstroke and bounding pulses Chest Chest inspection: normal inspection of the chest, symmetric chest movement and normal respiratory effort Auscultation: Bilateral: Clear to Auscultation Cardio Palpation: normal PMI Rate: re (more content not included)... Normal [facility] Chest PA and Lateralon 03-19 Chest PA and Lateral [facility] [address] [place], [place] [address] Chest PA and Lateral MR#: [id number] Acct: [id number] Name: MYNOR SHELL Jr. Rep #: [id number] : 1975 M 50 From: Bonnie Nagy PCP: Dr. Loki Reid MD Status: REG CLI Study: Chest PA and Lateral Date of Exam: 03/19/25 Exam# [id number] Ordering Dr: Gutierrez Bernal MD PROCEDURE: CHEST PA AND LATERAL 03/19/2025 REASON FOR EXAM: CAD TECHNIQUE: CHEST PA AND LATERAL COMPARISON: None FINDINGS: No focal consolidation. No pleural effusion or pneumothorax. Cardiac silhouette is within normal limits. No acute fractures. RAD/Chest PA and Lateral IMPRESSION: No focal consolidation. Reading Location: [facility] CC: Dr. Loki Reid MD; Dr. Gutierrez Bernal MD Card Reader: Signed Normal [facility] Chloride assayOrdered By: Eliezer Bernal on 03-19-2025 Chloride [Moles/Vol] 102 mmol/L 98-108 [facility] Eosinophil percentageOrdered By: Gutierrez Bernal on 03-19-2025 Eosinophils/100 WBC (Bld) 3.8 % 0-5 [facility] Erythrocyte distribution wid th ratioOrdered By: Gutierrez Bernal on 03-19-2025 Erythrocyte distribution width (RBC) [Ratio] 13.9 % 11.6-14.6 [facility] Erythrocyte distribution wid th standard deviationOrdered By: Gutierrez Bernal on 03-19-2025 Erythrocyte distribution width (RBC) [Ratio] 44.6 fl High 35.1-43.9 [facility] Glomerular filtration rate ( GFR) estimation/1.73 sq m using serum, plasma, or whole bOrdered By: Gutierrez Bernal on 03-19-2025 GFR/1.73 sq M.predicted among non-blacks MDRD (S/P/Bld) [Vol rate/Area] 84 mL/min/{1.73_m2} >60 [facility] Comment on above: mL/min/1.73m2 CKD-EP I Creatinine Equation (2020) Hematocrit Auto (Bld) [Volum e fraction]Ordered By: Gutierrez Bernal on 03-19-2025 Hematocrit (Bld) [Volume fraction] 45.5 % 40-54 [facility] Hemoglobin measurementOrdere d By: Gutierrez Bernal on 03-19-2025 Hemoglobin (Bld) [Mass/Vol] 15.1 g/dL 13.0-16.5 [facility] Immature granulocytes/100 WB C Auto (Bld)Ordered By: Gutierrez Gabe on 03-19-2025 Immature granulocytes/100 WBC (Bld) 0.300 % 0.0-0.9 [facility] Comment on above: IG% - Immature Granu locytes (promyelocytes, myelocytes and metamyelocytes) > 1% indicates that a LEFT SHIFT is Present. MCV (mean corpuscular volume ) determinationOrdered By: [place] Gabe on 03-19-2025 MCV (RBC) [Entitic vol] 88.0 fL 80-94 [facility] Mean corpuscular hemoglobin (MCH) determinationOrdered By: Gutierrez Gabe on 03-19-2025 MCH (RBC) [Entitic mass] 29.2 pg 27.0-32.0 [facility] Mean corpuscular hemoglobin concentration (MCHC) determinationOrdered By: [place] Gabe on 03-19-2025 MCHC (RBC) [Mass/Vol] 33.2 g/dL 32-36 [facility] Mean platelet volume determi nationOrdered By: [place] Gabe on 03-19-2025 Platelet mean volume (Bld) [Entitic vol] 9.7 fL 6.2-12.0 [facility] Monocyte percentageOrdered B y: [place] Gabe on 03-19-2025 Monocytes/100 WBC (Bld) 13.8 % High 0-10 [facility] Neutrophil percentageOrdered By: [place] Gabe on 03-19-2025 Neutrophils/100 WBC (Bld) 55.8 % 47-70 [facility] Nucleated red blood cell per centageOrdered By: [place] Gabe on 03-19-2025 Nucleated RBC/100 WBC (Bld) [Ratio] 0 % 0-5 [facility] Platelet countOrdered By: Cy ril Gabe on 03-19-2025 Platelets (Bld) [#/Vol] 467 10*3/uL High 150-450 [facility] Potassium measurement (mass/ volume)Ordered By: Gutierrez Gabe on 03-19-2025 Potassium (Unsp spec) [Mass/Vol] 3.6 mmol/L 3.3-5.1 [facility] Comment on above: Hemolysis present, R esults could be affected. RBC Auto (Bld) [#/Vol]Ordere d By: Gutierrez Bernal on 03-19-2025 RBC (Bld) [#/Vol] 5.17 10*6/uL 4.6-6.2 [facility] Serum creatinine measurement (mass/volume)Ordered By: [place] Gabe on 03-19-2025 Creatinine [Mass/Vol] 1.08 mg/dL 0.70-1.20 [facility] Serum glucose measurement (m ass/volume)Ordered By: Gutierrez Gabe on 03-19-2025 Glucose [Mass/Vol] 94 mg/dL 70-99 [facility] Serum or plasma calcium jaylan urement (mass/volume)Ordered By: Gutierrez Akbarori on 03-19-2025 Calcium [Mass/Vol] 9.1 mg/dL 7.6-11.0 [facility] Serum or plasma urea nitroge n measurement (mass/volume)Ordered By: Gutierrez Gabe on 03-19-2025 Urea nitrogen [Mass/Vol] 17 mg/dL 4-19 [facility] Sodium levelOrdered By: christie Bernal on 03-19-2025 Sodium [Moles/Vol] 137 mmol/L 133-145 [facility] White blood cell (WBC) count Ordered By: Gutierrez Gabe on 03-19-2025 WBC (Bld) [#/Vol] 8.0 10*3/uL 4.4-11.0 [facility] Cardiovascular stress test r eportOrdered By: Remy Last on 02-13-2025 Study report [facility] [address] [place] [address] MR#: [id number] Acct: [id number] Name: MYNOR SHELL Jr. Rep #: [id number] : 1975 50 From: Remy Last MD [...] or recovery This note was generated with [employer] software. It may contain incorrectwords, spelling, and punctuation that were not noted in checking the note beforesigning. 02/13/25 1406 Date _ Remy Last MD CC: Dr. Loki Reid MD ~ Date Dictated: 02/13/25 1358 Date Transcribed: 02/13/251357 Card Reader: POLLO Malhotra [facility] Work Phone: Stress Reporton 02-13-2025 Stress Report [facility] [address] [place] [address] MR#: [id number] Acct: [id number] Name: MYNOR SHELL Jr. Rep #: [id number] : 1975 50 From: Remy Last MD [...] or recovery This note was generated with [employer] software. It may contain incorrect words, spelling, and punctuation that were not noted in checking the note before signing. 02/13/25 1406 Date Remy Last MD CC: Dr. Loki Reid MD Date Dictated: 02/13/25 1358 Date Transcribed: 02/13/251357 Card Reader: POLLO Signed Normal [facility] Vital Signs Date Time Vital Sign Value Performing Clinician Faci lity 05-06-2025 09:37-0400 Diastolic blood pressure 82 mm[Hg] Dr. Loki Reid MD Work Phone: [facility] 05-06-2025 09:37-0400 Systolic blood pressure 120 mm[Hg] Dr. Loki Reid MD Work Phone: [facility] 05-06-2025 07:12-0400 Body height 172.[address] Loki Reid MD Work Phone: [facility] 05-06-2025 07:12-0400 Body mass index (BMI) [Ratio] 33.7 kg/m2 Dr. Loki Reid MD Work Phone: [facility] 05-06-2025 07:12-0400 Body weight 100.[address] Loki Reid MD Work Phone: [facility] 05-06-2025 07:12-0400 Heart rate 47 /min Dr. Loki Reid MD Work Phone: 2(107)819-728196 [address] 05-06-2025 07:12-0400 Respiratory rate 16 /min Dr. Loki Reid MD Work Phone: 2(516)393-739796 [address] 05-06-2025 07:12-0400 SaO2% (BldA) [Mass fraction] 100 % Dr. Loki Reid MD Work Phone: 0(659)606-083996 [address] 03-22-2025 13:05-0400 Body temperature 98 [degF] Dr. Loki Reid MD Work Phone: 5(850)834-213592 [place] [address] 03-22-2025 13:05-0400 Diastolic blood pressure 80 mm[Hg] Dr. Loki Reid MD Work Phone: 8(536)860-736792 [place] [address] 03-22-2025 13:05-0400 Heart rate 67 /min Dr. Loki Reid MD Work Phone: 3(145)634-958092 [place] [address] 03-22-2025 13:05-0400 Respiratory rate 14 /min Dr. Loki Reid MD Work Phone: [facility] 03-22-2025 13:05-0400 SaO2% (BldA) [Mass fraction] 96 % Dr. Loki Reid MD Work Phone: [facility] 03-22-2025 13:05-0400 Systolic blood pressure 137 mm[Hg] Dr. Loki Reid MD Work Phone: [facility] 03-22-2025 09:43-0400 Diastolic blood pressure 72 mm[Hg] Dr. Loki Reid MD Work Phone: [facility] 03-22-2025 09:43-0400 Heart rate 65 /min Dr. Loki Reid MD Work Phone: [facility] 03-22-2025 09:43-0400 Systolic blood pressure 135 mm[Hg] Dr. Loki Reid MD Work Phone: 9(154)017-012403 [place] [address] 03-22-2025 09:41-0400 Body temperature 97.7 [degF] Dr. Loki Reid MD Work Phone: 4(061)129-517192 [place] [address] 03-22-2025 09:41-0400 Respiratory rate 14 /min Dr. Loki Reid MD Work Phone: 2(994)602-583803 [place] [address] 03-22-2025 09:41-0400 SaO2% (BldA) [Mass fraction] 96 % Dr. Loki Reid MD Work Phone: 2(069)440-727403 [place] [address] 03-21-2025 13:13-0400 Body height 172.[address] Loki Reid MD Work Phone: 5(589)030-764203 [place] [address] 03-21-2025 13:13-0400 Body mass index (BMI) [Ratio] 35.9 kg/m2 Dr. Loki Reid MD Work Phone: 7(294)000-651503 [place] [address] 03-21-2025 13:13-0400 Body weight 107.[address] Loki Reid MD Work Phone: 0(069)486-833992 [place] [address] 03-19-2025 12:55-0400 Body height 172.[address] Loki Reid MD Work Phone: 0(855)015-710403 [place] [address] 03-19-2025 12:55-0400 Body mass index (BMI) [Ratio] 35.9 kg/m2 Dr. Loki Reid MD Work Phone: 3(061)160-150592 [place] [address] 03-19-2025 12:55-0400 Body weight 107.[address] Loki Reid MD Work Phone: 4(447)734-647903 [place] [address] 03-19-2025 12:55-0400 Diastolic blood pressure 86 mm[Hg] Dr. Loki Reid MD Work Phone: [facility] 03-19-2025 12:55-0400 Heart rate 70 /min Dr. Loki Reid MD Work Phone: [facility] 03-19-2025 12:55-0400 Respiratory rate 16 /min Dr. Loki Reid MD Work Phone: [facility] 03-19-2025 12:55-0400 Systolic blood pressure 142 mm[Hg] Dr. Loki Reid MD Work Phone: [facility] 01-17-2022 09:45-0400 Body temperature 97.3 [degF] Dr. Everett Reid Work Phone: [facility] Work Phone: 01-17-2022 09:45-0400 Diastolic blood pressure 83 mm[Hg] Dr. Everett Reid Work Phone: [facility] Work Phone: 01-17-2022 09:45-0400 Heart rate 55 /min Dr. Everett Reid Work Phone: [facility] Work Phone: 01-17-2022 09:45-0400 Respiratory rate 16 /min Dr. Everett Reid Work Phone: [facility] Work Phone: 01-17-2022 09:45-0400 SaO2% (BldA) [Mass fraction] 100 % Dr. Everett Reid Work Phone: [facility] Work Phone: 01-17-2022 09:45-0400 Systolic blood pressure 126 mm[Hg] Dr. Everett Reid Work Phone: [facility] Work Phone: 01-17-2022 08:16-0400 Body height 172.[address] Everett Reid Work Phone: [facility] Work Phone: 01-17-2022 08:16-0400 Body mass index (BMI) [Ratio] 36.7 kg/m2 Dr. Everett Reid Work Phone: [facility] Work Phone: 01-17-2022 08:16-0400 Body weight 109.[address] Everett Reid Work Phone: [facility] Work Phone: 12-23-2021 09:14-0400 Body mass index (BMI) [Ratio] 35.7 kg/m2 Dr. Everett Reid Work Phone: [facility] Work Phone: 12-23-2021 09:14-0400 Body weight 106.[address] Everett Reid Work Phone: [facility] Work Phone: Encounters Encounter Date Encounter Type Care Provider Facility Start: 05-27-20[facility] Start: 05-06-2025 End: 05-06-[address] Loki Reid MD Work Phone: -[facility] Start: 05-06-2025 End: 05-06-2025 Patient encounter procedure Levi HUFFMAN -[facility] Work Phone: Start: 03-21-2025 End: 03-22-2025 ambulatory Loki Reid Facility:[facility] Start: 03-21-2025 End: 03-22-2025 Evaluation and management of inpatient Dr. Gutierrez Bernal MD -Progressive Care Unit Work Phone: Start: 03-21-2025 End: 03-22-[address] Loki Reid MD Work Phone: -[facility] Unit Start: 03-19-2025 End: 03-19-[address] Loki Reid MD Work Phone: -Laboratory Start: 03-19-2025 End: 03-19-[address] Gutierrez Bernal MD -Laboratory Work Phone: Start: 03-19-2025 End: 03-19-[address] Gutierrez Bernal MD -[facility] Work Phone: Start: 03-19-2025 End: 03-19-[address] Loki Reid MD Work Phone: -[facility] Start: 03-19-2025 End: 03-19-2025 ambulatory Gutierrez Bernal Facility:[facility] Start: 02-20-2025 Non-patient / Non-visit Aminta Nolt -[facility] Work Phone: Start: 02-20-2025 ambulatory Aminta Nolt Facility:[facility] Start: 02-13-2025 ambulatory Loki Reid Faci lity:[facility] Start: 02-13-2025 Non-patient / Non-visit Dr. Remy elam MD -[facility] Start: 02-13-2025 End: 02-13-[address] Loki Ried MD Work Phone: [facility] Work Phone: Start: 02-13-2025 End: 02-13-[address] Loki Reid MD -Cardiovascular Services Work Phone: Start: 02-13-2025 End: 02-13-2025 ambulatory Loki Reid Facility:[facility] Start: 01-17-2022 Non-patient / Non-visit Dr. Becca Reid Work Phone: [facility] Start: 01-17-2022 End: 01-17-2022 Admission to same day surgery center Dr. Everett Reid Work Phone: [facility]-Endoscopy Start: 12-23-2021 Non-patient / Non-visit Dr. Becca Reid Work Phone: [facility] Procedures Date Procedure Procedure Detail Performing Clinician Start: 03-22-[address] Loki Reid MD Work Phone: Start: 03-21-2025 Coagulation time, activated Dr. Loki Reid MD Work Phone: Start: 03-19-2025 X-ray of chest, PA a nd lateral views Dr. Loki Reid MD Work Phone: Start: 01-17-[address] Fadi Reid Work Phone: Plan of Treatment Date Care Activity Detail Author Start: 05-06-2025 Evaluation of diagno stic study results [facility] Start: 03-22-2025 Patient discharge [facility] Start: 03-21-2025 Following clinical p athway protocol [facility] Start: 03-21-2025 Ambulation without limitation [facility] Start: 03-21-2025 Dietary regime [facility] Start: 03-21-2025 Patient education [facility] Start: 03-21-2025 End: 03-21-2025 [facility] Start: 03-21-2025 Cardiac monitoring [facility] Start: 03-21-2025 Cardiac rehabilitation - phase 1 [facility] Start: 03-21-2025 End: 03-21-2025 Notification of physician [facility] Start: 03-21-2025 Oxygen therapy [facility] Start: 03-21-2025 Pulse taking [facility] Start: 03-21-2025 Admission procedure [facility] Start: 03-19-2025 Evaluation of diagno stic study results [facility] Basic metabolic 2007 panel with ionized calcium - Serum or Plasma [facility] Basic metabolic 2007 panel with ionized calcium - Serum or Plasma [facility] Catheterization of left heart [facility] Catheterization of left heart [facility] CBC W Auto Different ial panel - Blood [facility] CBC W Auto Different ial panel - Blood [facility] Patient referral [facility] Work Phone: Prothrombin time [facility] XR Chest PA and Lateral [facility] Payers Date Payer Category Payer Private Health Insurance [id number] 2025 Self-pay [id number] Unknown [id number] Unknown [id number] 2.16.8 [id number] Unknown [id number] 2.16.8 [id number] Unknown [id number] 2.16.8 [id number] Unknown [id number] 2.16.8 [id number] Unknown [id number] 2.16.8 [id number] Unknown [id number] 2.16.8 [id number] Unknown [id number] 2.16.8 [id number] Unknown [id number] 2.16.8 [id number] Unknown [id number] 2.16.8 [id number] Social History Date Type Detail Facility Start: 01-17-2022 Tobacco smoking stat us CTIS Unknown if ever smoked [facility] Work Phone: Start: 1975 Sex Assigned At Male [facility] Start: 01-17-2022 End: 03-21-2025 Tobacco smoking status NHIS Never smoked tobacco (finding) [facility] Medical Equipment Procedure Code Equipment Code Equipment Origin al Text Equipment Identifier Dates Drug-eluting coronary artery stent, [id number] lymer-coated ([id number] FDA Start: 03-21-2025 Goals Date Patient Goal Desired Activity /State Functional Status Date Assessment Result Facility 03-22-2025 Functional status Ambulates [facility] Work Phone: 03-21-2025 Functional status None [facility] Work Phone: Mental Status Date Assessment Result Facility 03-22-2025 Cognitive function Voice/Name [facility] Work Phone: 01-17-2022 Cognitive function Voice/Name [facility] Work Phone: Discharge summary 03-21-2025 Note Date & Type Note Facility 03-21-2025 Discharge summary Note Date/Time March 21, 2025 1:05 pm [facility] Medical Records Department [address] [place] [address] Instructions for Home/Discharge Instructions 03/21/25 1300 MR#: [id number] Acct: [id number] Name: MYNOR SHELL Jr. Rep #:[id number] : 1975 50 From: Remy Last MD PCP: Dr. Loki Reid MD Status :REG [facility] Discharge Instructions DC O2, CPAP, BIPAP needs Home O2 Discharge instructions: No Dressing / Incision Discharge Activity: Return to Normal Activity Dressing / Incision Call your doctor if your incision/area has: Continuous Slow Oozing, Sudden Increased Bleeding, Increased Pain/ Swelling, Increased Redness and Foul Smelling Discharge Call your doctor if you observe: Fever of 101 or Higher, Coldness, Increased Pain, Numbness or Tingling and Change in Color Follow Up Care Please Follow Up With: Gutierrez Bernal MD When: 1-2 weeks Test Results: Test results from this visit will be discussed in further detail at your follow-up appointment, if applicable. Discharge Plan Admission Attending Provider: Gutierrez Bernal Primary Care Provider: Loki Reid Instructions Print Language: [place] Discharge Orders/Prescriptions Prescriptions: New amlodipine 2.5 mg Tablet 2.5 mg PO DAILY Qty: 30 6RF clopidogrel 75 mg Tablet 75 mg PO DAILY Qty: 30 11RF nitroglycerin [Nitrostat] 0.4 mg tablet, sublingual 0.4 mg sublingual Q5M PRN (Reason: chest pain) Qty: 14 3RF Rx Instructions: do not exceed 3 doses per episode Continued metoprolol succinate [Toprol XL] 25 mg tablet extended release 24 hr 25 mg PO QDAY Qty: 90 2RF atorvastatin [Lipitor] 40 mg tablet 40 mg PO QDAY Qty: 90 3RF aspirin [Adult Low Dose Aspirin] 81 mg tablet,delayed release (DR/EC) 81 mg PO QDAY Qty: 90 3RF Referrals / Follow Up: Loki Reid MD [Primary Care Provider] - Disposition Disposition (needs filled in before D/C Order can be placed): Home, Self Care 03/21/25 1305<Electronically signed by Remy Last MD>Remy Last MD CC: Dr. Loki Reid MD ~ Signed [facility] Work Phone: Discharge summary 03-21-2025 Note Date & Type Note Facility 03-21-2025 Discharge summary [facility] Evaluation note 03-19-2025 Note Date & Type Note Facility 03-19-2025 Evaluation note Diagnosis Onset Date Resolution Abnormal stress test acute March 19, 2025 12:53pm [facility] Work Phone: Radiology Diagnostic study note 03-19-2025 Note Date & Type Note Facility 03-19-2025 Radiology Diagnostic study note [facility] [address] [place], [place] [id number] Chest PA and Lateral MR#: [id number] Acct: [id number] Name: MYNOR SHELL Jr. Rep #: [id number] : 1975 M 50 From: Lashay Burr MD PCP: Dr. Loki Reid MD Status: REG CLI Study:Chest PA and Lateral Date of Exam: 03/19/25 Exam# [id number] Ordering Dr: Eliezer Bernal MD PROCEDURE: CHEST PA AND LATERAL 03/19/2025 REASON FOR EXAM: CAD TECHNIQUE: CHEST PA AND LATERAL COMPARISON: None FINDINGS: No focal consolidation. No pleural effusion or pneumothorax. Cardiac silhouette is within normal limits. No acute fractures. RAD/Chest PA and Lateral IMPRESSION: No focal consolidation. Reading Location: [facility] CC: Dr. Loki Reid MD; Dr. Gutierrez Bernal MD ~ Card Reader: Signed [facility] Evaluation note Note Date & Type Note Facility Evaluation note Diagnosis Onset Date Encounter for screening for malignant neoplasm of colon acute [facility] Work Phone: Evaluation note Note Date & Type Note Facility Evaluation note No assessment information availa ble [facility] Work Phone: Evaluation note Note Date & Type Note Facility Evaluation note Diagnosis Onset Date Resolution Abnormal stress test acute March 19, 2025 12:53pm [facility] Work Phone: Reason for referral (narrative) Note Date & Type Note Facility Reason for referral (narrative) No reason for referral information available [facility] Work Phone: Chief Complaint and Reason [...] stress test March 19, 2025 12: 53pm Chief Complaint Admit Date CHEST PAIN February 13, 2025 11:5 7am CHEST PAIN February 13, 2025 1:58 pm Amb Documentation February 20, 2025 1:09 pm CP/ABN STRESS (Jeanette) March 19, 2025 1 2:53pm E-ORDER March 19, 2025 2:07 pm ABN STRESS March 21, 2025 12:5 6pm Chief Complaint Admit Date CHEST PAIN February 13, 2025 11:5 7am CHEST PAIN February 13, 2025 1:58 pm Amb Documentation February 20, 2025 1:09 pm CP/ABN STRESS (Jeanette) March 19, 2025 1 2:53pm E-ORDER March 19, 2025 2:07 pm ABN STRESS March 21, 2025 12:5 6pm HISTORY AND PHYSICAL May 06, 2025 8:49am Family History No Family History Records Found Relationship Condition Age at Onset Recorded Date/T paulina father Malignant neoplasm of prostate Unknown Hypertension Unknown Advance Directives No Advanced Directives Records Found Advance Directive Response Recorded Date/ Time Living Will No January 14, 2022 1 1:18am Power of Sharepoint Analyst No January 14, 2022 11:18am Advance Directive Response Recorded Date/ Time Living Will No March 21, 2025 6:47am Do you have a Healthcare Power of Sharepoint Analyst? No March 21, 2025 1:13pm Advance Directives No March 21 6:47am Summary Purpose Additional Source Comments Goals (unrecognized [...] 2025 End: February 13, 2025 Dr. Loki eRid MD Referring Provider Active Start: February 13, [...] March 19, 2025 End: March 19, 2025 Team Status: Active Member Role/Relationship Status Dates Dr. Loki Reid MD Primary Care Provider Acti ve Start: March 19, 2025 Dr. Gutierrez Bernal MD Attending Provider Active S tart: March 19, 2025 Dr. Gutierrez Bernal MD Referring Provider Active S tart: March 19, 2025 Team Status: Inactive Member Role/Relationship Status Dates Dr. Loki Reid MD Primary Care Provider Acti ve Start: March 21, 2025 End: March 22, 2025 Dr. Gutierrez Bernal MD Admit Provider Active Start : March 21, 2025 End: March 22, 2025 Dr. Gutierrez Bernal MD Attending Provider Active S tart: March 21, 2025 End: March 22, 2025 Dr. Gutierrez Bernal MD Referring Provider Active S tart: March 21, 2025 End: March 22, 2025 Dr. Remy Last MD Other Provider Active Star t: March 21, 2025 End: March 22, 2025 Team Status: Inactive Member Role/Relationship Status Dates Dr. Loki Reid MD Primary Care Provider Acti ve Start: March 19, 2025 End: March 19, 2025 Dr. Gutierrez Bernal MD Attending Provider Active S tart: March 19, 2025 End: March 19, 2025 Dr. Gutierrez Bernal MD Referring Provider Active S tart: March 19, 2025 End: March 19, 2025 Team Status: Inactive Member Role/Relationship Status Dates Dr. Loki Reid MD Primary Care Provider Acti ve Start: May 06, 2025 End: May 06, 2025 Dr. Loki Reid MD Referring Provider Active Start: May 06, 2025 End: May 06, 2025 ARMIDA Vargas Attending Provider Active St art: May 06, 2025 End: May 06, 2025 (unrecognized sect ion and content) No Status Records Found INFORMATION SOURCE (unrecogn ized section and content) DATE CREATED AUTHOR 05/27/2025 [facility] FOR RECORDS PERTAINING TO PATIENTS [...] BE BASED ON THE PRIMARY CLINICAL RECORDS. [facility] [employer] provides no warranty or guarantee of the accuracy or completeness of information in this document.
--- NOTE | 2025-05-27 10:06 | CL.I_ITS ---
Patient Name: MYNOR SHELL Study Date: 05/27/2025 Performing: Remy Last MD Ht: 68 inches 172.72 cm : 1975 Wt: 222.01 lbs 100.7 kg Age: 50 Gender: male BSA: 2.14 PROCEDURE(S) PERFORMED IC12-(98234/C9600)JOSE W/WO PTCA, SINGLE CORONARY ARTERY IC13-(11460/C9600)JOSE W/WO PTCA, EACH ADD'L ART, SAME MAJOR CLINICAL PROFILE AND CO-MORBIDITIES Indications: Stable Known CAD, Staged PCI Heart Failure: None Angina Classification Anginal Classification w/in 2 Weeks: No symptoms CAD Presentations: No Sxs, no angina. CONCLUSIONS Successful JOSE Prox LAD using Miles Datto 3.0x30 mm, post-dilated using 3.25 mm balloon Successful JOSE Prox D1 using Freda Datto 2.25x12 mm, post-dilated using 2.5 mm balloon RECOMMENDATIONS ASA Indefinitley P2Y12 inhibitors for atleast 6 months DESCRIPTION OF PROCEDURE The patient arrived to the procedure lab. The risks and benefits of the procedure as well as a full description of our services here and current unavailability of surgical backup were fully explained to the patient and/or their significant other prior to the catheterization. The Timeout was completed, verifying the correct patient and procedure. The patient's procedural site was prepped and draped in the usual fashion. Local anesthetic was given subcutaneously to right radial region with Lidocaine 2%. Using a modified Seldinger technique, arterial access was obtained via the right radial artery, a 6Fr sheath was inserted.. XB 3 Guide catheter was inserted and engaged into the LCA. RUNTHROUGH Guide wire was advanced to the PROXIMAL 1ST DIAG FREDA FRONTIER 2.25 X 12 Drug Eluting stent was inserted. Drug Eluting stent was advanced across the lesion in the first diagonal, proximal. Angiogram performed post stent deployment. NC EMERGE 2.50 X 12 Balloon catheter was inserted. Balloon catheter was inserted post stent. Guide wire was repositioned to the LAD FREDA FRONTIER 3.0 X 30 Drug Eluting stent was inserted. Drug Eluting stent was advanced across the lesion in the LAD, proximal. Angiogram performed post stent deployment. NC EMERGE 3.25 X 20 Balloon catheter was inserted post stent. Angiogram performed post balloon dilatation. The arterial sheath was pulled and a TR Band was applied for hemostasis 10 ml of air INTERVENTION INFORMATION LESION SITE: 1st Diagonal (Proximal) Lesion Complexity: Non-High/Non-C, lesion length: 10 mm Pre Stenosis: 70 % Pre intervention LAILA flow: 3 PROCEDURE: Drug Eluting Stent with post dilatation Post Stenosis: 0 % Post intervention LAILA flow: 3 Lesion Devices: Terumo .014 180cm Runthrough Extra Floppy straight Medtronic 2.25 x 12 FREDA FRONTIER JOSE Cordis 6 Fr XB3.0 100cm Guide Catheter Gonsalo Sci NC EMERGE MR 2.50x12 BALLOON LESION SITE: LAD (Proximal) Lesion Complexity: High/C, lesion length: 29 mm Pre Stenosis: 80 % Pre intervention LAILA flow: 3 PROCEDURE: Drug Eluting Stent with post dilatation Post Stenosis: 0 % Post intervention LAILA flow: 3 Lesion Devices: Terumo .014 180cm Runthrough Extra Floppy straight Cordis 6 Fr XB3.0 100cm Guide Catheter Medtronic 3.0 x 30 FREDA FRONTIER JOSE Gonsalo Sci NC EMERGE MR 3.25x20 BALLOON COMPLICATIONS No Complications PROCEDURE MEDICATIONS Fentanyl 50 mcg IV Versed 1 mg IV Oxygen: 2 L/min via nasal cannula Heparin given IA 05/27/2025 09:14:02 Heparin 5000 unit(s) IV 05/27/2025 09:15:08 Heparin 3000 unit(s) IV 05/27/2025 09:49:12 Nitro 200 mcg IC 05/27/2025 09:25:38 Nitro 200 mcg IC 05/27/2025 09:25:38 Verapamil 2.5mg, Ntg 200mcgs, 2000 units of Heparin given IA 05/27/2025 09:14:02 SUMMARY OF HEMODYNAMIC DATA Time AIR REST ECG 07:43:25 AO 113/70 (90) SA 09:18:52 AO 118/75 (94) 09:30:44 Signed By Remy Last MD On 05/27/2025 10:05:48 Remy Last MD
--- NOTE | 2025-05-27 10:07 | DCINST_ITS ---
Discharge Instructions DC O2, CPAP, BIPAP needs Home O2 Discharge instructions: No Dressing / Incision Discharge Activity: Return to Normal Activity Dressing / Incision Call your doctor if your incision/area has: Continuous Slow Oozing, Sudden Increased Bleeding, Increased Pain/ Swelling, Increased Redness, Foul Smelling Discharge and Swelling at the incision site Call your doctor if you observe: Fever of 101 or Higher, Coldness, Increased Pain, Numbness or Tingling and Change in Color Follow Up Care Please Follow Up With: Remy Last MD When: 2-4 weeks Test Results: Test results from this visit will be discussed in further detail at your follow- up appointment, if applicable. Discharge Plan Admission Attending Provider: Remy Last Primary Care Provider: Loki Reid Consulting Providers: Levi Greer Print Language: Serbian Discharge Orders/Prescriptions Prescriptions: No Action metoprolol succinate [Toprol XL] 25 mg tablet extended release 24 hr 25 mg PO QDAY Qty: 90 2RF atorvastatin [Lipitor] 40 mg tablet 40 mg PO QDAY Qty: 90 3RF aspirin [Adult Low Dose Aspirin] 81 mg tablet,delayed release (DR/EC) 81 mg PO QDAY Qty: 90 3RF amlodipine 2.5 mg Tablet 2.5 mg PO DAILY Qty: 30 6RF clopidogrel 75 mg Tablet 75 mg PO DAILY Qty: 30 11RF nitroglycerin [Nitrostat] 0.4 mg tablet, sublingual 0.4 mg sublingual Q5M PRN (Reason: chest pain) Qty: 14 3RF Rx Instructions: do not exceed 3 doses per episode Referrals / Follow Up: Loki Reid MD [Primary Care Provider, Family Practice] Disposition Disposition (needs filled in before D/C Order can be placed): Home, Self Care
--- NOTE | 2025-05-27 12:05 | CRPHASE1 ---
Patient Communication Patient Information PHII Cardiac Rehab Discussed with Patient:: Yes Guide to Cardiac Rehab Given to Patient:: Yes Communication to Cardiac Rehab Choice Program [facility] CR PHII:: Communication Given to CR Etl Manager:: Remy Last Phase II Cardiac Rehab:: Yes Sessions:: 36 sessions - 3 days/wk, 12 weeks Cardiac Rehabilitation Info Program Information Cardiac Rehabilitation Program Information: Cardiac Rehab The cardiac rehab team at [facility] consists of highly skilled exercise physiologists, nurses, respiratory therapists and physicians working together with you. Our purpose is to help you have a full recovery and achieve the goals you set for yourself. Over the years many of our patients have returned to activities they assumed they would never do again! We can help restore your confidence and motivation to make lifestyle changes that can have a significant impact on your health and quality of life! We can help answer questions and concerns you may have about exercise, lifestyle, medications, diet, stress and anxiety which are common following a hospitalization. WE monitor ECG and vital signs during exercise and discuss your progress with you and report to your physician(s). Cardiac Rehab is proven to help reduce readmissions, improve functional capacity and lower recurrence of problems with your heart. Our Cardiac Rehab program is Certified by the [place] [employer]-V[employer] Pulmonary [employer] (AACVPR) and Accredited by the [employer] through our [facility]. You can contact us at . We invite you to call us with your questions or to get started in our program. If you have other questions or concerns be sure to ask your physician/provider during your follow-up visit. WE look forward to seeing you!
--- NOTE | 2025-05-27 12:05 | CRPH1.INSTRU ---
General Education Discussed with Patient CAD and cardiac anatomy and function:: Patient communicates acknowledgment Explanation of diagnoses and procedures:: Patient communicates acknowledgment Sign/Symptoms of OK:: Patient communicates acknowledgment Antiplatelet therapy: Patient communicates acknowledgment Proper use of NTG-SL: Patient communicates acknowledgment Emergency procedures and activation of EMS: Patient communicates acknowledgment Compliance of all prescribed medications: Patient communicates acknowledgment Smoking Risk Factors Patient Nicotine/Smoking Risk Factors Are:: Never smoked Dyslipidemia Risk Factors Patient Dyslipidemia Risk Factors Are:: Total Cholesterol, Triglycerides, HDL and LDL Recommendations Recommendations Include:: Lipid profile provided, Reviewed NCEP/ATP guidelines and Therapeutic Lifestyle Change dietary guidelines Response Code Dyslipidemia Response Code:: Patient communicates acknowledgment Overweight/Obesity Risk Factors Patient Overweight/Obesity Risk Factors Are:: Obesity - > or = 30 Recommendations Recommendations Include:: Weight loss of 5-10%, Reduced calorie diet and Exercise 5-7 times/week Response Code Overweight/Obesity:: Patient communicates acknowledgment Hypertension Recommendations Recommendations Include:: Maintain BP <130/85, DASH dietary guidelines and Moderation of ETOH Response Code Hypertension:: Patient communicates acknowledgment Diabetes Risk Factors Patient Diabetes Risk Factors Are:: No documented hx of diabetes Metabolic Syndrome Risk Factors Patient Metabolic Syndrome Risk Factors Are [3 of 5]:: Fasting blood sugar > 100 mg/dL, Waist circumference > 35 [female] or 40 [male], High triglyceride >150, Hypertension and Low HDL <40 [male] or < 50 [female] Recommendations Recommendations Include:: Reinforce compliance to risk factor modifications and Encouraged follow-up with Primary Care Physician Response Code Metabolic Syndrome Response Code:: Patient communicates acknowledgment Sedentary Risk Factors Patient Sedentary Risk Factors Are:: Lack of regular exercise Recommendations Recommendations Include:: Aerobic exercise 5-7 times/week for 20-30 minutes continuously, Benefits of regular exercise, Discussed home walking program and Monitored Outpatient Cardiac Rehab Response Code Sedentary Response Code:: Patient communicates acknowledgment Stress Recommendations Recommendations Include:: Identification of stressors, and assessment of coping skills and Stress management techniques Response Code Stress Response Code:: Patient communicates acknowledgment
[2025-05-27 13:43] LABS: ACT Activated Clotting Time 187 sec (74-137)
[2025-05-27 13:43] LABS: ACT Activated Clotting Time 320 sec (74-137)
== END 2025-05-27 14:07 | disposition home or self-care (01) ==
PROVIDERS: Student in an Organized Health Care Education/Training Program; PCP Family Medicine; Referring Provider Internal Medicine Cardiovascular Disease; Visit Provider Internal Medicine Cardiovascular Disease
DX: I25.10 Atherosclerotic heart disease of native coronary artery without angina pectoris (principal); Z79.82 Long term (current) use of aspirin; Z79.02 Long term (current) use of antithrombotics/antiplatelets; Z79.899 Other long term (current) drug therapy; K21.9 Gastro-esophageal reflux disease without esophagitis; Z95.5 Presence of coronary angioplasty implant and graft
CPT/HCPCS: 36415; 80048; 85025; 85347; 85610; 92928; 92929; 93005; 99152; 99153; C1874; C1887; C1894; Q9967; C1725; C1769; C9600; C9601

== ENCOUNTER → 2025-06-13 | Outpatient (CLI) | payer OTHER, SELFPAY ==
[2025-06-13 10:57] LABS: Anion Gap 10 (5-15); BUN 13 mg/dL (4-19); BUN/Creat Ratio 11.8 RATIO (10-20); Calcium,Total 9.0 mg/dL (7.6-11.0); Carbon Dioxide 24.9 mmol/L (21.0-32.0); Chloride 106 mmol/L (98-108); Cholesterol 96 mg/dL (<=200); Glucose 101 mg/dL (70-99); Low Density Lipoprotein Calc. 36 mg/dL; PSA,Total - Annual Screen 3.25 ng/mL (0.02-4.00); Potassium 3.7 mmol/L (3.3-5.1); Triglycerides 86 mg/dL; Very Low Density Lipoprotein 17 mg/dL (5-40); cholesterol:hdl ratio screen 2.21
== END | disposition home or self-care (01) ==
LOC: MTLAB 07-15 14:47
PROVIDERS: Nurse Practitioner Family; PCP Family Medicine; Referring Provider Family Medicine; Visit Provider Family Medicine
DX: Z12.5 Encounter for screening for malignant neoplasm of prostate (principal); Z13.220 Encounter for screening for lipoid disorders; R73.01 Impaired fasting glucose
CPT/HCPCS: 36415; 80048; 80061; 83036; 84153; G0103